=== PATIENT | male | born 1960 | race Caucasian/White ===

== ENCOUNTER 2016-07-02 23:30 | Emergency (ER) | payer MEDICARE, OTHER ==
[2016-07-02 23:44] VITALS: RESP 20
[2016-07-02] MEDS ORDERED: DIPH,PERTUS(ACELL)TETVAC-LF 0.5 ML VIAL IM ONE (23:54)
--- NOTE | 2016-07-03 00:52 | CT ---
EXAMINATION TYPE: CT brain mustapha wo con DATE OF EXAM: 07/03/2016 12:44 AM COMPARISON: 05/24/2014 HISTORY: fall CT DLP: 1594.70 mGycm Automated exposure control for dose reduction was used. TECHNIQUE: CT scan of the head and cervical spine are performed without contrast. FINDINGS: There is cerebral cortical atrophy. There is no mass effect or midline shift. There is no sign of intracranial hemorrhage. The calvarium is intact. There is a right frontal scalp hematoma. The cervical vertebra have normal alignment. There is degenerative disc space narrowing at C6-7 with spurring of the endplates. Posterior elements are intact. Facet joints are intact. Skull base is inta ct. There is a small posterior C5-6 cervical disc herniation. IMPRESSION: Cerebral atrophy. No acute intracranial abnormality. No change. Right frontal scalp hematoma. Spondylotic changes in the lower cervical spine. No fracture. No change.
--- NOTE | 2016-07-03 01:08 | ED ---
Fall HPI - General Chief Complaint: Fall Stated Complaint: fall, etoh Time Seen by Provider: 07/02/16 23:46 Source: patient, EMS Mode of arrival: EMS - History of Present Illness Initial Comments: This 56-year-old white male presents with a complaint of a fall. He apparently tripped and hit his head on the concrete. He states that he missed a step. He denies any loss of consciousness although his friend thinks he may have passed out. There is been no nausea or vomiting. He does present via EMS. He apparently was drinking heavily and cannot quantify how much she drank this evening. He did sustain a laceration right above his right eyebrow. He denies any other injuries although he does have some neck tenderness. No other complaints or modifying factors. - Related Data Previous Rx's Medication Instructions Recorded Calcium Carbonate [Tums] 500 mg PO QID 30 Days 04/20/16 Doxycycline [Vibramycin] 100 mg PO Q12HR #10 capsule 04/20/16 HYDROcodone/APAP 5-325MG [Blackburn 1 each PO Q6HR PRN #20 tab 04/20/16 5-325] Multivitamins, Thera [Multivitamin] 1 tab PO DAILY #30 tablet 04/20/16 Pregabalin [Lyrica] 75 mg PO BID #60 cap 04/20/16 Sennosides-Docusate Sodium 2 each PO HS PRN #20 tab 04/20/16 [Senokot-S] Thiamine [Vitamin B-1] 100 mg PO BID@1200,1700 #30 tab 04/20/16 Cephalexin [Keflex] 500 mg PO Q6HR #20 cap 07/03/16 Allergies Allergy/AdvReac Type Severity Reaction Status Date / Time No Known Allergies Allergy Verified 07/02/16 23:44 Review of Systems ROS Statement: Those systems with pertinent positive or pertinent negative responses have been documented in the HPI. ROS Other: All systems not noted in ROS Statement are negative. Past Medical History Past Medical History: Unable to Obtain Additional Past Medical History / Comment(s): neuropathy, arthritis History of Any Multi-Drug Resistant Organisms: None Reported Past Surgical History: No Surgical Hx Reported Past Anesthesia/Blood Transfusion Reactions: No Reported Reaction Past Psychological History: No Psychological Hx Reported Smoking Status: Current every day smoker Past Alcohol Use History: Abuse, Daily, Heavy Additional Past Alcohol Use History / Comment(s): drinks about 8-12 beers/day Past Drug Use History: None Reported - Past Family History Mother History Unknown: Yes Father History Unknown: Yes General Exam - General Exam Comments Initial Comments: GENERAL: The patient is well nourished and well hydrated. VITAL SIGNS: Heart rate, blood pressure, respiratory rate reviewed as recorded in nurse's notes. EYES: Pupils are round and reactive. Extraocular movements are intact. No conjunctival / lid redness or swelling. ENT: There is swelling and a 3 cm laceration above the right eyebrow. Airway is patent. Throat is clear. NECK: There is mild tenderness noted to the bilateral paracervical musculature. No swelling or evidence of injury. No subcutaneous emphysema. Trachea is midline. No thyroid mass. HEART: Regular rate and rhythm. Good peripheral pulses. LUNGS/CHEST: Breath sounds clear and equal bilaterally. No rales, rhonchi, or wheezes. No ecchymosis, subcutaneous emphysema, or tenderness. ABDOMEN: Abdomen soft without tenderness. No palpable masses or organomegaly. No peritoneal signs. No abdominal wall swelling or ecchymosis. EXTREMITIES: No extremity tenderness. Normal muscle tone and function. No thoracolumbar tenderness. NEUROLOGIC: Sensation is grossly intact. Cranial nerve exam reveals face is symmetrical, tongue is midline. Speech is mildly slurred consistent with alcohol intoxication.. SKIN: No abrasions or ecchymosis is noted. No induration or masses noted. PSYCHIATRIC: Alert and oriented. Appears intoxicated. Limitations: altered mental status Course Vital Signs 07/02/16 07/02/16 23:40 23:54 Temperature 97.6 F Pulse Rate 84 83 Respiratory 20 20 Rate Blood Pressure 145/87 O2 Sat by Pulse 96 97 Oximetry Medical Decision Making - Medical Decision Making The patient was seen and examined. A computed tomography scan of the brain was done and this shows a degree of atrophy with some right frontal scalp swelling. He receives a tetanus prophylaxis. The computed tomography scan of the neck does show some degenerative changes and possible slight herniated disc. The scalp laceration was anesthetized with some lidocaine, approximately 8 ml. the wound was thoroughly cleansed. A total of 6 simple interrupted 5-0 Vicryl sutures were placed. A total of 12 simple her up to 6-0 nylon sutures were placed. Excellent closure was obtained. No complications were encountered. He was watched for quite some time and did sober up significantly. It is felt as though he is stable for discharge. He has a friend who is going to watch him. He is counseled regarding head injuries and facial lacerations in detail and leaves in no distress. Disposition Clinical Impression: Fall, Head injury, Cervical strain, Alcohol intoxication, Facial laceration Disposition: HOME SELF-CARE Condition: Good Instructions: Fall Prevention for Older Adults (ED), Head Injury (ED), Cervical Strain (ED), Abuse of Alcohol (ED), Facial Laceration (ED) Additional Instructions: Please follow-up with your doctor in approximately 7 days to have the sutures removed. Prescriptions: Cephalexin [Keflex] 500 mg PO Q6HR #20 cap Referrals: None,Stated [Primary Care Provider] - 1-2 days Time of Disposition: 02:07
[2016-07-03 02:12] VITALS: PULSE 102
[2016-07-03 02:29] VITALS: BP 127/72; TEMP 97.8
== END 2016-07-03 02:30 | disposition home or self-care (01) ==
LOC: EC 23:30
DX: S01.81XA Laceration without foreign body of other part of head, initial encounter (principal); S09.90XA Unspecified injury of head, initial encounter; S16.1XXA Strain of muscle, fascia and tendon at neck level, initial encounter; Z23 Encounter for immunization; F10.129 Alcohol abuse with intoxication, unspecified; W10.9XXA Fall (on) (from) unspecified stairs and steps, initial encounter; Z79.899 Other long term (current) drug therapy; G62.9 Polyneuropathy, unspecified
CPT/HCPCS: 12013; 70450; 72125; 90471; 90715; 99284

== ENCOUNTER 2017-03-17 18:48 | Inpatient (IN) | payer MEDICARE, OTHER ==
[~2017-03-17 18:48] MED LIST: THIAMINE 100 MG TAB PO SCH
[2017-03-17] MEDS ORDERED: SODIUM CHLORIDE 0.9% 1,000 ML IV STA ×3 (19:13→20:57)
[2017-03-17] MEDS ORDERED: SODIUM CHLORIDE 0.9% 500 ML IV STA (19:13)
--- NOTE | 2017-03-17 19:40 | ED ---
General Adult HPI - General Chief complaint: Weakness Stated complaint: Weakness Time Seen by Provider: 03/17/17 18:50 Source: patient, RN notes reviewed, old records reviewed Mode of arrival: EMS - History of Present Illness Initial comments: This is a 57-year-old male to the ER for evaluation regarding weakness. Patient per EMS and bystanders had not moved from results are within 3 days. They found her lying in his feces, patient has known alcoholic and has not Out Of Bed in 2 Days Likely. Patient Himself Is Able to Answer Questions, Denies Any Specific Complaints, States He Does Not Feel Well. - Related Data Home Medications Medication Instructions Recorded Confirmed No Known Home Medications [No 03/17/17 03/17/17 Known Home Medications] Allergies Allergy/AdvReac Type Severity Reaction Status Date / Time No Known Allergies Allergy Verified 03/17/17 19:47 Review of Systems ROS Statement: Those systems with pertinent positive or pertinent negative responses have been documented in the HPI. ROS Other: All systems not noted in ROS Statement are negative. Past Medical History Past Medical History: Unable to Obtain Additional Past Medical History / Comment(s): neuropathy, arthritis History of Any Multi-Drug Resistant Organisms: None Reported Past Surgical History: No Surgical Hx Reported Past Anesthesia/Blood Transfusion Reactions: No Reported Reaction Past Psychological History: No Psychological Hx Reported Smoking Status: Current every day smoker Past Alcohol Use History: Abuse, Daily, Heavy Past Drug Use History: None Reported - Past Family History Mother History Unknown: Yes Father History Unknown: Yes General Exam Limitations: altered mental status General appearance: alert, in distress, cachectic Head exam: Present: atraumatic, normocephalic, normal inspection Eye exam: Present: normal appearance, PERRL, EOMI. Absent: scleral icterus, conjunctival injection, periorbital swelling ENT exam: Present: normal exam, mucous membranes moist Neck exam: Present: normal inspection. Absent: tenderness, meningismus, lymphadenopathy Respiratory exam: Present: normal lung sounds bilaterally. Absent: respiratory distress, wheezes, rales, rhonchi, stridor Cardiovascular Exam: Present: regular rate, normal rhythm, normal heart sounds. Absent: systolic murmur, diastolic murmur, rubs, gallop, clicks GI/Abdominal exam: Present: soft, normal bowel sounds. Absent: distended, tenderness, guarding, rebound, rigid Extremities exam: Present: normal inspection, full ROM, normal capillary refill. Absent: tenderness, pedal edema, joint swelling, calf tenderness Back exam: Present: normal inspection Neurological exam: Present: alert, oriented X3, CN II-XII intact Psychiatric exam: Present: normal affect, normal mood Skin exam: Present: warm, dry, intact, normal color. Absent: rash Course Vital Signs 03/17/17 03/17/17 03/17/17 19:04 19:24 19:59 Temperature 97.8 F Pulse Rate 110 H 107 H Respiratory 18 16 Rate Blood Pressure 88/61 85/60 O2 Sat by Pulse 94 L 100 Oximetry 03/17/17 20:53 Temperature Pulse Rate 106 H Respiratory 16 Rate Blood Pressure 91/68 O2 Sat by Pulse 100 Oximetry - Reevaluation(s) Reevaluation #1: 03/17/17 21:01 Patient has no clinical improvement EKG Findings - EKG Comments: EKG Findings:: EKG shows sinus tachycardia rate of 104, MO 166, QRS 100, QTc 526 Medical Decision Making - Medical Decision Making 57 I'll to the ER for evaluation, patient found lying in his own feces immobile. Patient's alcohol abuse. Severe hyponatremia, patient will be admitted for this resuscitation, pending alcohol withdrawal, and electrolyte replacement - Lab Data Result diagrams: 03/17/17 19:47 03/17/17 19:47 Lab Results 03/17/17 03/17/17 03/17/17 Range/Units 19:47 19:47 19:47 WBC (3.8-10.6) k/uL RBC (4.30-5.90) m/uL Hgb (13.0-17.5) gm/dL Hct (39.0-53.0) % MCV (80.0-100.0) fL MCH (25.0-35.0) pg MCHC (31.0-37.0) g/dL RDW (11.5-15.5) % Plt Count (150-450) k/uL Neutrophils % % Lymphocytes % % Monocytes % % Eosinophils % % Basophils % % Neutrophils # (1.3-7.7) k/uL Lymphocytes # (1.0-4.8) k/uL Monocytes # (0-1.0) k/uL Eosinophils # (0-0.7) k/uL Basophils # (0-0.2) k/uL PT (9.0-12.0) sec INR (<1.2) APTT (22.0-30.0) sec Sodium 118 L* (137-145) mmol/L Potassium 3.4 L (3.5-5.1) mmol/L Chloride 86 L (98-107) mmol/L Carbon Dioxide 16 L (22-30) mmol/L Anion Gap 16 mmol/L BUN 15 (9-20) mg/dL Creatinine 0.60 L (0.66-1.25) mg/dL Est GFR (MDRD) Af Amer >60 (>60 ml/min/1.73 sqM) Est GFR (MDRD) Non-Af >60 (>60 ml/min/1.73 sqM) Glucose 89 (74-99) mg/dL Plasma Lactic Acid Gianfranco 2.7 H* (0.7-2.0) mmol/L Calcium 8.4 (8.4-10.2) mg/dL Phosphorus 3.8 (2.5-4.5) mg/dL Magnesium 1.6 (1.6-2.3) mg/dL Total Bilirubin 1.6 H (0.2-1.3) mg/dL AST 42 (17-59) U/L ALT 36 (21-72) U/L Alkaline Phosphatase 135 H (38-126) U/L Ammonia <9 (<30) umol/L Total Creatine Kinase 20 L (55-170) U/L CK-MB (CK-2) <0.2 (0.0-2.4) ng/mL CK-MB (CK-2) Rel Index Troponin I <0.012 (0.000-0.034) ng/mL Total Protein 6.8 (6.3-8.2) g/dL Albumin 3.2 L (3.5-5.0) g/dL Serum Alcohol <10 mg/dL 03/17/17 03/17/17 Range/Units 19:47 19:47 WBC 3.2 L (3.8-10.6) k/uL RBC 3.70 L (4.30-5.90) m/uL Hgb 12.4 L (13.0-17.5) gm/dL Hct 36.1 L (39.0-53.0) % MCV 97.5 (80.0-100.0) fL MCH 33.5 (25.0-35.0) pg MCHC 34.4 (31.0-37.0) g/dL RDW 14.3 (11.5-15.5) % Plt Count 226 (150-450) k/uL Neutrophils % 57 % Lymphocytes % 35 % Monocytes % 5 % Eosinophils % 1 % Basophils % 0 % Neutrophils # 1.8 (1.3-7.7) k/uL Lymphocytes # 1.1 (1.0-4.8) k/uL Monocytes # 0.2 (0-1.0) k/uL Eosinophils # 0.0 (0-0.7) k/uL Basophils # 0.0 (0-0.2) k/uL PT 14.6 H (9.0-12.0) sec INR 1.5 H (<1.2) APTT 27.4 (22.0-30.0) sec Sodium (137-145) mmol/L Potassium (3.5-5.1) mmol/L Chloride (98-107) mmol/L Carbon Dioxide (22-30) mmol/L Anion Gap mmol/L BUN (9-20) mg/dL Creatinine (0.66-1.25) mg/dL Est GFR (MDRD) Af Amer (>60 ml/min/1.73 sqM) Est GFR (MDRD) Non-Af (>60 ml/min/1.73 sqM) Glucose (74-99) mg/dL Plasma Lactic Acid Gianfranco (0.7-2.0) mmol/L Calcium (8.4-10.2) mg/dL Phosphorus (2.5-4.5) mg/dL Magnesium (1.6-2.3) mg/dL Total Bilirubin (0.2-1.3) mg/dL AST (17-59) U/L ALT (21-72) U/L Alkaline Phosphatase (38-126) U/L Ammonia (<30) umol/L Total Creatine Kinase (55-170) U/L CK-MB (CK-2) (0.0-2.4) ng/mL CK-MB (CK-2) Rel Index Troponin I (0.000-0.034) ng/mL Total Protein (6.3-8.2) g/dL Albumin (3.5-5.0) g/dL Serum Alcohol mg/dL Disposition Clinical Impression: Alcohol intoxication, Hyponatremia, Dehydration, Weakness Disposition: ADMITTED IP TO THIS HOSP Condition: Serious Referrals: None,Stated [Primary Care Provider] - 1-2 days
[2017-03-17 19:57] LABS: Basophils % (A) 0 %; CH 33.5; CHCM 34.5; Eosinophils % (A) 1 %; HCT 36.1 % (39.0-53.0); HDW 2.45; HGB 12.4 gm/dL (13.0-17.5); Luc # (Auto) 0.09; Luc % (Auto) 3; Lymphocytes # (A) 1.1 k/uL (1.0-4.8); Lymphocytes % (A) 35 %; MCH 33.5 pg (25.0-35.0); MCHC 34.4 g/dL (31.0-37.0); MCV 97.5 fL (80.0-100.0); Mean Platelet Volume 7.4; Monocytes # (A) 0.2 k/uL (0-1.0); Monocytes % (A) 5 %; Neutrophils # (A) 1.8 k/uL (1.3-7.7); Neutrophils % (A) 57 %; RDW 14.3 % (11.5-15.5); WBC 3.2 k/uL (3.8-10.6)
[2017-03-17 20:06] LABS: Ammonia <9 umol/L (<30)
[2017-03-17 20:08] LABS: ALT 36 U/L (21-72); AST 42 U/L (17-59); Alcohol <10 mg/dL; Alkaline Phosphatase 135 U/L (38-126); Anion Gap 16 mmol/L; Blood Urea Nitrogen 15 mg/dL (9-20); Calcium 8.4 mg/dL (8.4-10.2); Carbon Dioxide 16 mmol/L (22-30); Chloride 86 mmol/L (98-107); Glucose 89 mg/dL (74-99); Magnesium 1.6 mg/dL (1.6-2.3); Non-African American GFR(MDRD) >60 (>60 ml/min/1.73 sqM); Phosphorus 3.8 mg/dL (2.5-4.5); Potassium 3.4 mmol/L (3.5-5.1); Total Bilirubin 1.6 mg/dL (0.2-1.3); Total Protein 6.8 g/dL (6.3-8.2)
[2017-03-17 20:16] LABS: INR 1.5 (<1.2); Partial Thromboplastin Time 27.4 sec (22.0-30.0); Prothrombin Time 14.6 sec (9.0-12.0)
[2017-03-17 20:17] LABS: Sodium 118 mmol/L (137-145)
[2017-03-17 20:24] LABS: Creatine Kinase 20 U/L (55-170)
[2017-03-17 20:36] LABS: Creatine Kinase MB <0.2 ng/mL (0.0-2.4); Troponin I <0.012 ng/mL (0.000-0.034)
[2017-03-17] MEDS ORDERED: THIAMINE 100 MG/ML 2 ML VIAL IM STA (20:57)
[2017-03-17] MEDS ORDERED: LORazepam 2 MG/ML INJ IV PRN ×3 (20:57)
[2017-03-17] MEDS: DEXTROSE 5%-0.45% NACL 1,000 ML IV SCH (21:48)
[2017-03-18 04:19] VITALS: BMI 15.9
[2017-03-18 11:10] LABS: Glucose,Whole Blood 138 mg/dL (75-99)
[2017-03-18] MEDS ORDERED: SODIUM CHLORIDE 0.9% 1,000 ML IV ONE (11:21)
--- NOTE | 2017-03-18 11:29 | P.HPIM ---
History of Present Illness patient is a 52-year-old male was brought in here by friends after he was found in feces sliding it in the morning motel room. Patient is extremely poor historian although I'm able to get some of the history patient apparently has been in the modal room knotting eating or drinking just watching TV he cannot explain why patient is alert and unable to tell me the date exactly he doses 2017, when asked about depression he says everyone is depressed he denied any suicidal ideations patient is found to be severely hyponatremic admitted to the hospital unfortunately he was started on D5 half-normal saline which is not appropriate which is being switched to normal saline and will also check the blood sugars.when questioned more patient says he is just not eating because he doesn't feel like eating patient denies any alcohol abuse but although it was reported in the ER by the friends that he has been drinking every single day, but his blood alcohol level was not elevated. Patient dies found to have lactic is doses due to severe dehydration I didn't see any source of infection anyways CVA blood cultures urine cultures and chest x-ray will be obtained and antibiotics will be discontinued. Patient is on alcohol withdrawal precautions and thiamine multivitamin supplementation will also monitor blood glucose area patient denied any dysuria denied any cough runny nose, fever patient says she has severe neuropathic pain used to use A, which was taken off after his discharge from subacute rehab. When verified patient was in fact discharged on Lyrica after his previous hospitalization in 2016area patient is hypotensive secondary to severe hypovolemia patient will be resuscitated with the bolus of normal saline Review of Systems all other systems were negative except for those mentioned in the HPI Past Medical History Past Medical History: Unable to Obtain Additional Past Medical History / Comment(s): neuropathy, arthritis History of Any Multi-Drug Resistant Organisms: None Reported Past Surgical History: No Surgical Hx Reported Past Anesthesia/Blood Transfusion Reactions: No Reported Reaction Past Psychological History: No Psychological Hx Reported Smoking Status: Current every day smoker Past Alcohol Use History: Abuse, Daily, Heavy Additional Past Alcohol Use History / Comment(s): drinks about 8-12 beers/day Past Drug Use History: None Reported - Past Family History Mother History Unknown: Yes Father History Unknown: Yes Medications and Allergies Home Medications Medication Instructions Recorded Confirmed Type No Known Home Medications [No 03/17/17 03/17/17 History Known Home Medications] Allergies Allergy/AdvReac Type Severity Reaction Status Date / Time No Known Allergies Allergy Verified 03/17/17 19:47 Physical Exam Vitals: Vital Signs Temp Pulse Pulse Resp BP BP BP 03/18/17 07:00 97.0 F L 90 20 74/45 03/17/17 23:01 97.0 F L 86 16 84/59 03/17/17 22:40 16 03/17/17 21:55 98.8 F 106 H 16 91/64 03/17/17 20:53 106 H 16 91/68 03/17/17 19:59 107 H 16 85/60 03/17/17 19:24 88/61 03/17/17 19:04 97.8 F 110 H 18 BP Pulse Ox 03/18/17 07:00 82/57 100 03/17/17 23:01 96 03/17/17 22:40 03/17/17 21:55 100 03/17/17 20:53 100 03/17/17 19:59 100 03/17/17 19:24 03/17/17 19:04 94 L Intake and Output 03/17/17 03/18/17 03/18/17 22:59 06:59 14:59 Intake Total 380 Balance 380 Intake: Intake, IV Titration 320 Amount Dextrose 5%-0.45% NaCl 1, 320 000 ml @ 80 mls/hr IV . [id number] [facility] Rx#:[id number] Oral 60 Other: Voiding Method Incontinent # Voids 2 Weight 56.245 kg 56.245 kg Patient Weight 03/19/17 06:59 Weight 56.245 kg PHYSICAL EXAMINATION: GENERAL: The patient is alert and oriented x3, not in any acute distress. Well developed, well nourished. HEENT: Pupils are round and equally reacting to light. EOMI. No scleral icterus. No conjunctival pallor. Normocephalic, atraumatic. No pharyngeal erythema. No thyromegaly. CARDIOVASCULAR: S1 and S2 present. No murmurs, rubs, or gallops. PULMONARY: Chest is clear to auscultation, no wheezing or crackles. ABDOMEN: Soft, nontender, nondistended, normoactive bowel sounds. No palpable organomegaly. MUSCULOSKELETAL: No joint swelling or deformity. EXTREMITIES: No cyanosis, clubbing, or pedal edema. NEUROLOGICAL: Gross neurological examination did not reveal any focal deficits. SKIN: No rashes. Results CBC & Chem 7: 03/17/17 19:47 03/17/17 19:47 Labs: Abnormal Lab Results - Last 24 Hours (Table) 03/17/17 03/17/17 03/17/17 Range/Units 19:47 19:47 19:47 WBC (3.8-10.6) k/uL RBC (4.30-5.90) m/uL Hgb (13.0-17.5) gm/dL Hct (39.0-53.0) % PT (9.0-12.0) sec INR (<1.2) Sodium 118 L* (137-145) mmol/L Potassium 3.4 L (3.5-5.1) mmol/L Chloride 86 L (98-107) mmol/L Carbon Dioxide 16 L (22-30) mmol/L Creatinine 0.60 L (0.66-1.25) mg/dL POC Glucose (mg/dL) (75-99) mg/dL Plasma Lactic Acid Gianfranco 2.7 H* (0.7-2.0) mmol/L Total Bilirubin 1.6 H (0.2-1.3) mg/dL Alkaline Phosphatase 135 H (38-126) U/L Total Creatine Kinase 20 L (55-170) U/L Albumin 3.2 L (3.5-5.0) g/dL 03/17/17 03/17/17 03/18/17 Range/Units 19:47 19:47 11:01 WBC 3.2 L (3.8-10.6) k/uL RBC 3.70 L (4.30-5.90) m/uL Hgb 12.4 L (13.0-17.5) gm/dL Hct 36.1 L (39.0-53.0) % PT 14.6 H (9.0-12.0) sec INR 1.5 H (<1.2) Sodium (137-145) mmol/L Potassium (3.5-5.1) mmol/L Chloride (98-107) mmol/L Carbon Dioxide (22-30) mmol/L Creatinine (0.66-1.25) mg/dL POC Glucose (mg/dL) 138 H (75-99) mg/dL Plasma Lactic Acid Gianfranco (0.7-2.0) mmol/L Total Bilirubin (0.2-1.3) mg/dL Alkaline Phosphatase (38-126) U/L Total Creatine Kinase (55-170) U/L Albumin (3.5-5.0) g/dL Thrombosis Risk Factor Assmnt - Choose All That Apply Any of the Below Risk Factors Present?: Yes Each Factor Represents 1 point: Age 41-60 years Other Risk Factors: No Other congenital or acquired thrombophilia - If yes, enter type in comment: No Thrombosis Risk Factor Assessment Total Risk Factor Score: 1 Thrombosis Risk Factor Assessment Level: Low Risk Assessment and Plan Plan: #1 severe hypokalemia, hypovolemic hyponatremia: She was started on normal saline will give a bolus of IV normal saline close monitoring of lites. #2 possibility of alcoholism and severe depression. #3 hypotension secondary to severe hypokalemia for which patient was started on IV fluids as mentioned above. #4 lactic acidosis due to severe intravascular volume depletion for which patient was started on IV fluids.the symptoms of sepsis patient will not be started on any antibiotics. #5severe neuropathic pain because of his chronic low back problems patient for which patient was started on Lyrica. #6 severe deconditioning due to above-mentioned reasons of not ambulating and lying on the bed for a long time, will get physical therapy evaluation patient will be started on Lyrica again. #7 possibility of alcohol dependence and withdrawal although there is no evidence of that patient will be monitored and will be on alcohol withdrawal precautions
[2017-03-18 12:44] LABS: CH 33.5; CHCM 33.4; HCT 31.5 % (39.0-53.0); HDW 2.55; HGB 10.4 gm/dL (13.0-17.5); MCH 33.2 pg (25.0-35.0); MCHC 32.9 g/dL (31.0-37.0); MCV 100.8 fL (80.0-100.0); Macrocytosis Slight; Mean Platelet Volume 7.9; RBC 3.13 m/uL (4.30-5.90); RDW 15.2 % (11.5-15.5); WBC 2.7 k/uL (3.8-10.6)
[2017-03-18 12:48] LABS: Anion Gap 9 mmol/L; Blood Urea Nitrogen 9 mg/dL (9-20); Calcium 7.4 mg/dL (8.4-10.2); Carbon Dioxide 19 mmol/L (22-30); Chloride 96 mmol/L (98-107); Glucose 77 mg/dL (74-99); Magnesium 1.6 mg/dL (1.6-2.3); Non-African American GFR(MDRD) >60 (>60 ml/min/1.73 sqM); Potassium 3.1 mmol/L (3.5-5.1); Sodium 124 mmol/L (137-145)
[2017-03-18] MEDS: DEXTROSE 5%-0.45% NACL 1,000 ML IV SCH (14:21)
[2017-03-18] MEDS: SODIUM CHLORIDE 0.9% 1,000 ML IV SCH (14:24)
[2017-03-18] MEDS: ENOXAPARIN 40 MG/0.4 ML SYRINGE SQ SCH (14:24)
[2017-03-18] MEDS: THIAMINE 100 MG TAB PO SCH ×2 (14:25→18:29)
[2017-03-18 16:40] LABS: Appearance,Urine Cloudy (Clear); Bacteria,Urine Moderate /hpf; Bilirubin,Urine Negative (Negative); Glucose,Urine (UA) Negative (Negative); Ketones,Urine Negative (Negative); Leukocyte Esterase,Urine Large (Negative); Nitrite,Urine Negative (Negative); PH, Urine 5.5 (5.0-8.0); Particle Count 4029; Protein,Urine Negative (Negative); RBC,Urine 23 /hpf (0-5); Specific Gravity,Urine 1.008 (1.001-1.035); Squamous Epithelial Cell,Urine <1 /hpf (0-4); UA Billing (MACRO vs. MICRO) MICRO; Urobilinogen,Urine >12.0 mg/dL (<2.0); WBC,Urine 67 /hpf (0-5)
[2017-03-19] MEDS: SODIUM CHLORIDE 0.9% 1,000 ML IV SCH ×2 (00:41→08:10)
[2017-03-19 08:04] LABS: Anion Gap 6 mmol/L; Blood Urea Nitrogen 5 mg/dL (9-20); Carbon Dioxide 17 mmol/L (22-30); Chloride 104 mmol/L (98-107); Glucose 78 mg/dL (74-99); Non-African American GFR(MDRD) >60 (>60 ml/min/1.73 sqM); Sodium 127 mmol/L (137-145)
[2017-03-19] MEDS: ENOXAPARIN 40 MG/0.4 ML SYRINGE SQ SCH (08:09)
[2017-03-19 08:11] LABS: Potassium 2.9 mmol/L (3.5-5.1)
[2017-03-19 08:22] LABS: CH 32.4; CHCM 32.1; HCT 26.6 % (39.0-53.0); HDW 2.61; MCHC 32.5 g/dL (31.0-37.0); MCV 101.6 fL (80.0-100.0); Macrocytosis Slight; Mean Platelet Volume 7.6; RBC 2.62 m/uL (4.30-5.90); RDW 14.6 % (11.5-15.5); WBC 2.3 k/uL (3.8-10.6)
[2017-03-19 08:29] LABS: HGB 8.6 gm/dL (13.0-17.5)
[2017-03-19] MEDS ORDERED: Potassium Replacement Protocol 1 EACH MISC MISCELLANE PRN (08:29)
[2017-03-19] MEDS ORDERED: Magnesium Replacement Protocol 1 EACH MISC MISCELLANE PRN (08:47)
[2017-03-19] MEDS: POTASSIUM CHLORIDE 10 MEQ, LIDOCAINE 2% INJ 10 MG in SODIUM CHLORIDE 0.9% 100 ML IV SCH ×3 (09:06→11:25)
[2017-03-19] MEDS: LACTATED RINGERS 1,000 ML IV SCH (11:25)
--- NOTE | 2017-03-19 11:39 | P.PN ---
Subjective -year-old man with severe depression not been eating for about few days at a motel room was admitted for hyponatremia patient's hyponatremia is improving because of hyperchloremic issues and normal lactic acid, patient will be switched to lactated Ringer's and stent. Patient had an episode of diarrhea without obtaining C. diff testing. Patient doesn't have any significant withdrawals. As patient was telling yesterday patient is probably not drinking every single day as documented in ER note Constitutional: Denied any fatigue denied any fever. Cardio vascular: denied any chest pain, palpitations Gastrointestinal denied any nausea vomiting Pulmonary: Denied any shortness of breath cough Neurologic denied any new focal deficits Objective - Vital Signs Vital signs: Vital Signs Temp 98.8 F 03/19/17 07:00 Pulse 89 03/19/17 09:59 Resp 16 03/19/17 07:00 BP 90/69 03/19/17 08:46 Pulse Ox 98 03/19/17 07:00 Intake & Output 03/18/17 03/19/17 03/19/17 18:59 06:59 18:59 Intake Total 400 590 Output Total 200 Balance 200 590 Weight 56.245 kg Intake: Oral 400 590 Output: Urine 200 Other: Voiding Method Incontinent Incontinent Urinal Diaper # Voids 4 1 # Bowel Movements 1 3 - Exam REVIEW OF SYSTEMS: CONSTITUTIONAL: No fever, no malaise, no fatigue. HEENT: No recent visual problems or hearing problems. Denied any sore throat. CARDIOVASCULAR: No chest pain, orthopnea, PND, no palpitations, no syncope. PULMONARY: No shortness of breath, no cough, no hemoptysis. GASTROINTESTINAL: No diarrhea, no nausea, no vomiting, no abdominal pain. Normoactive bowel sounds. NEUROLOGICAL: No headaches, no weakness, no numbness. HEMATOLOGICAL: Denies any bleeding or petechiae. GENITOURINARY: Denies any burning micturition, frequency, or urgency. MUSCULOSKELETAL/RHEUMATOLOGICAL: Denies any joint pain, swelling, or any muscle pain. ENDOCRINE: Denies any polyuria or polydipsia. The rest of the 14-point review of systems is negative. - Labs CBC & Chem 7: 03/19/17 07:15 03/19/17 07:15 Labs: Abnormal Lab Results - Last 24 Hours (Table) 03/18/17 03/18/17 03/18/17 Range/Units 12:16 12:16 16:25 WBC 2.7 L (3.8-10.6) k/uL RBC 3.13 L (4.30-5.90) m/uL Hgb 10.4 L (13.0-17.5) gm/dL Hct 31.5 L (39.0-53.0) % MCV 100.8 H (80.0-100.0) fL Sodium 124 L (137-145) mmol/L Potassium 3.1 L (3.5-5.1) mmol/L Chloride 96 L (98-107) mmol/L Carbon Dioxide 19 L (22-30) mmol/L BUN (9-20) mg/dL Creatinine 0.55 L (0.66-1.25) mg/dL Calcium 7.4 L (8.4-10.2) mg/dL Magnesium (1.6-2.3) mg/dL Urine Blood Large H (Negative) Ur Leukocyte Esterase Large H (Negative) Urine RBC 23 H (0-5) /hpf Urine WBC 67 H (0-5) /hpf Urine Bacteria Moderate H (None) /hpf 03/19/17 03/19/17 03/19/17 Range/Units 07:15 07:15 07:15 WBC 2.3 L (3.8-10.6) k/uL RBC 2.62 L (4.30-5.90) m/uL Hgb 8.6 L D (13.0-17.5) gm/dL Hct 26.6 L (39.0-53.0) % MCV 101.6 H (80.0-100.0) fL Sodium 127 L (137-145) mmol/L Potassium 2.9 L* (3.5-5.1) mmol/L Chloride (98-107) mmol/L Carbon Dioxide 17 L (22-30) mmol/L BUN 5 L (9-20) mg/dL Creatinine 0.49 L (0.66-1.25) mg/dL Calcium 7.0 L (8.4-10.2) mg/dL Magnesium 1.3 L (1.6-2.3) mg/dL Urine Blood (Negative) Ur Leukocyte Esterase (Negative) Urine RBC (0-5) /hpf Urine WBC (0-5) /hpf Urine Bacteria (None) /hpf Assessment and Plan Plan: #1 severe hypokalemia, hypovolemic hyponatremia: She was started on normal saline will give a bolus of IV normal saline close monitoring of lites. #2 possibility of alcoholism and severe depression. #3 hypotension secondary to severe hypokalemia which resolved with IV fluids #4 lactic acidosis due to severe intravascular volume depletion for which patient was started on IV fluids.the symptoms of sepsis patient will not be started on any antibiotics. #5severe neuropathic pain because of his chronic low back problems patient for which patient was started on Lyrica. #6 severe deconditioning due to above-mentioned reasons of not ambulating and lying on the bed for a long time, will get physical therapy evaluation patient will be started on Lyrica again. #7 possibility of alcohol dependence and withdrawal although there is no evidence of that patient will be monitored and will be on alcohol withdrawal precautions
[2017-03-19] MEDS: THIAMINE 100 MG TAB PO SCH ×2 (11:44→16:26)
[2017-03-19] MEDS: MAGNESIUM SULFATE-D5W PMX 1 GM in DEXTROSE/WATER 1 100ML.BAG IVPB SCH ×3 (13:38→16:25)
[2017-03-19] MEDS: ACETAMINOPHEN TAB 325 MG TAB PO PRN (16:25)
[2017-03-19] MEDS: PREGABALIN 50 MG CAP PO SCH ×2 (17:39→21:33)
[2017-03-19 18:20] LABS: Vitamin B12 >1000 pg/mL (239-931)
[2017-03-19 18:58] LABS: Potassium 3.3 mmol/L (3.5-5.1)
[2017-03-19] MEDS: POTASSIUM CHLORIDE 10 MEQ, LIDOCAINE 2% INJ 10 MG in SODIUM CHLORIDE 0.9% 100 ML IVPB SCH ×2 (20:29→21:34)
[2017-03-19] MEDS: MIRTAZAPINE 15 MG TAB PO SCH (21:34)
--- NOTE | 2017-03-19 22:49 | P.CN ---
Psychiatric Consult - . Consult date: 03/19/17 Consult:: VITAL SIGNS: Temp 101.1 F H 03/19/17 15:00 Pulse 102 H 03/19/17 15:00 Resp 16 03/19/17 15:00 BP 91/68 03/19/17 15:00 Pulse Ox 100 03/19/17 15:00 LABS: 03/19/17 03/19/17 03/19/17 07:15 07:15 07:15 WBC 2.3 L RBC 2.62 L Hgb 8.6 L D Hct 26.6 L MCV 101.6 H MCH 33.0 MCHC 32.5 RDW 14.6 Plt Count 173 Macrocytosis Slight Sodium 127 L Potassium 2.9 L* Chloride 104 Carbon Dioxide 17 L Anion Gap 6 BUN 5 L Creatinine 0.49 L Est GFR (MDRD) Af Amer >60 Est GFR (MDRD) Non-Af >60 Glucose 78 Calcium 7.0 L Magnesium 1.3 L C. difficile (EIA) Intrp HPI: Patient is 57 year old male who was brought to the hospital by EMS after friends called for help when patient was found covered in feces in his motel room. Patient is overall poor historian, but cooperative with interview. He reports that he has not been eating for the last three weeks and drinking alcohol every day. Patient denies any suicidal intent, he states that due to his chronic neuropathy he is unable to ambulate and as such has been unable to leave his motel to purchase or do more or less anything. Patient has no insight into the seriousness of his medical situation. After discussion how severe hypokalemia, hypovolemic hyponatremia patient seems more mindful. He agrees to be more cooperative with staff. Patient admits to chronic feelings of depression, but due to his sarcastic, cynical nature it is difficult to screen patient for a past major depressive episode or past manic episode. He will admit only to being depressed and having a decreased appetite. At this time, patient denies SI/HI/AVH. PSYCHIATRIC HISTORY: denies any past history of psychiatric hospitalization, treatment with psychotropic medication, or psychotherapy PMH: neuropathy, OA HOME MEDICATIONS: none ALLERGIES: NKDA SURGICAL HISTORY: none CHEMICAL DEPENDENCY HISTORY: alcoholism, denies other drug use FAMILY HISTORY: refuses to discuss, states growing up was "a nightmare" SOCIAL HISTORY: occupational: unemployed environmental: previously living in a motel, lives alone, unable to ambulate due to neuropathy and thus unable to leave to buy food, attend doctors appointments, etc. : no bahai: no preference access to firearms: denies sexual orientation: heterosexual safety at home: "not anymore, obviously" STRENGTHS/WEAKNESSES: patient states he is a "survivor" / housing, financial, access to care, insight MENTAL STATUS EXAM: Appearance: disheveled, ragged, malnourished Behavior: no psychomotor agitation+++, abnormal movements?, poor to fair eye contact Attitude: cooperative Speech: normal rate, rhythm, fluency, volume; articulation is impaired and prosody is choppy; primary language: Thai Mood: "irritated: Affect: labile, reactive, congruent with mood Thought processes: linear Thought content: patient does not appear to be responding to internal stimuli; patient denies auditory and visual hallucinations, no delusions appreciated Insight: poor Judgment: poor Cognitive: oriented to all 3 spheres, below average to average intelligence Assessment and Plan Plan: Start Remeron 7.5-mg PO QHS with plan to titrate up to 15-mg PO QHS pending tolerability for depression, insomnia, and decreased appetite Start Lyrica 25-mg PO TID for neuropathic pain and anxiety with plan to titrate up pending tolerability Labs ordered for workup on secondary contributing factors to depression and neuropathy: o Vitamin B6 o Vitamin B12 o Vitamin B1 o Prealbumin o TSH w/ Reflex to FT4 Patient responds fairly well to constructive criticism, hes sarcastic and cynical, but will comply with prompting At this time, patient does not meet criteria for admission into inpatient mental health Psychiatry will follow Time with Patient: Greater than 30
[2017-03-20] MEDS: POTASSIUM CHLORIDE ER 20 MEQ TAB.ER PO SCH ×2 (01:15→03:37)
[2017-03-20] MEDS: LACTATED RINGERS 1,000 ML IV SCH ×3 (03:40→16:15)
[2017-03-20 08:34] LABS: Anion Gap 8 mmol/L; Blood Urea Nitrogen 3 mg/dL (9-20); Calcium 7.3 mg/dL (8.4-10.2); Carbon Dioxide 17 mmol/L (22-30); Chloride 104 mmol/L (98-107); Glucose 73 mg/dL (74-99); Magnesium 1.4 mg/dL (1.6-2.3); Non-African American GFR(MDRD) >60 (>60 ml/min/1.73 sqM); Potassium 3.7 mmol/L (3.5-5.1); Sodium 129 mmol/L (137-145)
[2017-03-20 08:43] LABS: CH 33.5; CHCM 33.3; HCT 27.6 % (39.0-53.0); HDW 2.61; HGB 9.1 gm/dL (13.0-17.5); MCH 33.5 pg (25.0-35.0); MCHC 33.1 g/dL (31.0-37.0); MCV 101.2 fL (80.0-100.0); Macrocytosis Slight; Mean Platelet Volume 7.8; RBC 2.72 m/uL (4.30-5.90); RDW 15.3 % (11.5-15.5)
[2017-03-20 08:46] LABS: WBC 1.8 k/uL (3.8-10.6)
[2017-03-20] MEDS: ENOXAPARIN 40 MG/0.4 ML SYRINGE SQ SCH (09:01)
[2017-03-20] MEDS: ACETAMINOPHEN TAB 325 MG TAB PO PRN (09:01)
[2017-03-20] MEDS: THIAMINE 100 MG TAB PO SCH ×2 (11:22→16:15)
[2017-03-20] MEDS: PREGABALIN 25 MG CAP PO SCH ×3 (11:22→22:40)
[2017-03-20] MEDS ORDERED: Magnesium Replacement Protocol 1 EACH MISC MISCELLANE PRN (12:57)
[2017-03-20] MEDS: MAGNESIUM SULFATE-D5W PMX 1 GM in DEXTROSE/WATER 1 100ML.BAG IVPB SCH ×3 (13:16→16:12)
[2017-03-20] MEDS: MIRTAZAPINE 15 MG TAB PO SCH (22:40)
--- NOTE | 2017-03-21 01:01 | P.PN ---
Subjective Progress Note Date: 03/20/17 Principal diagnosis: Hyponatremia T7-year-old man with severe depression not been eating for about few days at a motel room was admitted for hyponatremia patient's hyponatremia is improving because of hyperchloremic issues and normal lactic acid, patient was switched to lactated Ringer's and stent. Patient doesn't have any significant withdrawals. Constitutional: Denied any fatigue denied any fever. Cardio vascular: denied any chest pain, palpitations Gastrointestinal denied any nausea vomiting Pulmonary: Denied any shortness of breath cough Neurologic denied any new focal deficits All other 14 point review of systems negative Current medications reviewed Objective - Vital Signs Vital signs: Vital Signs Temp 97.5 F L 03/20/17 15:00 Pulse 108 H 03/20/17 16:00 Resp 17 03/20/17 16:00 BP 105/55 03/20/17 18:04 Pulse Ox 94 L 03/20/17 15:00 Intake & Output 03/20/17 03/20/17 03/21/17 06:59 18:59 06:59 Intake Total 1600 1150 Output Total 200 Balance 1400 1150 Weight 56.245 kg 56.245 kg Intake: Intake, IV Titration 1600 1150 Amount Lactated Ringers 1,000 ml 1400 800 @ 100 mls/hr IV .Q10H [facility] Rx#:[id number] Magnesium Sulfate-D5w Pmx 300 1 gm In Dextrose/Water 1 100ml.bag @ 100 mls/hr IVPB Q1H [facility] Rx#: [id number] Potassium Chloride 10 meq 200 Lidocaine 2% Inj 10 mg In Sodium Chloride 0.9% 100 ml @ 100 mls/hr IVPB Q1HR [facility] Rx#:[id number] cefTRIAXone 1,000 mg In 50 Sodium Chloride 0.9% 50 ml @ 100 mls/hr IVPB Q24HR [facility] Rx#:[id number] Output: Urine 200 Other: Voiding Method Urinal Urinal Incontinent Incontinent # Voids 3 - Exam PHYSICAL EXAMINATION: Patient is lying in the bed comfortably, no acute distress, awake alert and oriented.. HEENT: Normocephalic. Neck is supple. Pupils reactive. Nostrils clear. Oral cavity is moist. Ears reveal no drainage. Neck reveals no JVD, carotid bruits, or thyromegaly. CHEST EXAMINATION: Trachea is central. Symmetrical expansion. Lung atkins clear to auscultation and percussion. CARDIAC: Normal S1, S2 with no gallops. No murmurs ABDOMEN: Soft. Bowel sounds normal. No organomegaly. No abdominal bruits. Extremities: reveal no edema. No clubbing or cyanosis Neurologically awake, alert, oriented x3 with well-coordinated movements. No focal deficits noted Skin: No rash or skin lesions. Psychiatric: Operative. Nonsuicidal Musculoskeletal: No joint swelling or deformity. Normal range of motion. - Labs CBC & Chem 7: 03/20/17 07:45 03/20/17 07:45 Labs: Abnormal Lab Results - Last 24 Hours (Table) 03/19/17 03/20/17 03/20/17 Range/Units 23:50 07:45 07:45 WBC 1.8 L* (3.8-10.6) k/uL RBC 2.72 L (4.30-5.90) m/uL Hgb 9.1 L (13.0-17.5) gm/dL Hct 27.6 L (39.0-53.0) % MCV 101.2 H (80.0-100.0) fL Sodium 129 L (137-145) mmol/L Potassium 3.4 L (3.5-5.1) mmol/L Carbon Dioxide 17 L (22-30) mmol/L BUN 3 L (9-20) mg/dL Creatinine 0.44 L (0.66-1.25) mg/dL Glucose 73 L (74-99) mg/dL Calcium 7.3 L (8.4-10.2) mg/dL Magnesium 1.4 L (1.6-2.3) mg/dL Microbiology - Last 24 Hours (Table) 03/19/17 16:52 Blood Culture - Preliminary Blood No Growth after 24 hours 03/19/17 16:20 Blood Culture - Preliminary Blood No Growth after 24 hours 03/19/17 23:10 Urine Culture - Preliminary Urine,Voided Assessment and Plan Plan: #1 severe hypokalemia, hypovolemic hyponatremia: Improving #2 possibility of alcoholism and severe depression. #3 hypotension secondary to severe hypokalemia which resolved with IV fluids #4 lactic acidosis due to severe intravascular volume depletion for which patient was started on IV fluids.the symptoms of sepsis patient will not be started on any antibiotics. #5severe neuropathic pain because of his chronic low back problems patient for which patient was started on Lyrica. #6 severe deconditioning due to above-mentioned reasons of not ambulating and lying on the bed for a long time, will get physical therapy evaluation patient will be started on Lyrica again. #7 possibility of alcohol dependence and withdrawal although there is no evidence of that patient will be monitored and will be on alcohol withdrawal precautions Time with Patient: Greater than 30
[2017-03-21] MEDS: LACTATED RINGERS 1,000 ML IV SCH ×2 (03:21→15:08)
[2017-03-21 07:33] LABS: Aty Lym Flag Marked; CH 33.6; CHCM 31.9; HCT 29.4 % (39.0-53.0); HDW 2.56; HGB 9.3 gm/dL (13.0-17.5); MCH 33.4 pg (25.0-35.0); MCHC 31.5 g/dL (31.0-37.0); Macrocytosis Moderate; Mean Platelet Volume 7.6; RBC 2.77 m/uL (4.30-5.90); RDW 15.6 % (11.5-15.5); WBC 2.2 k/uL (3.8-10.6)
[2017-03-21 08:04] LABS: Anion Gap 7 mmol/L; Blood Urea Nitrogen 4 mg/dL (9-20); Calcium 7.4 mg/dL (8.4-10.2); Carbon Dioxide 18 mmol/L (22-30); Chloride 102 mmol/L (98-107); Glucose 68 mg/dL (74-99); Magnesium 1.4 mg/dL (1.6-2.3); Non-African American GFR(MDRD) >60 (>60 ml/min/1.73 sqM); Potassium 3.4 mmol/L (3.5-5.1); Sodium 127 mmol/L (137-145)
[2017-03-21 08:17] LABS: Add Differential Manual Differential
[2017-03-21 08:24] LABS: Band Neutrophils % 1 %; Manual Review Performed; Nucleated Red Blood Cells 0 /100 WBC (0-0); Total Cells Counted 100
[2017-03-21] MEDS ORDERED: Magnesium Replacement Protocol 1 EACH MISC MISCELLANE PRN (08:42)
[2017-03-21] MEDS ORDERED: Potassium Replacement Protocol 1 EACH MISC MISCELLANE PRN (08:43)
[2017-03-21] MEDS: ENOXAPARIN 40 MG/0.4 ML SYRINGE SQ SCH (08:52)
[2017-03-21] MEDS: THIAMINE 100 MG TAB PO SCH ×2 (08:52→16:59)
[2017-03-21] MEDS: POTASSIUM CHLORIDE ER 20 MEQ TAB.ER PO SCH ×4 (09:32→18:11)
[2017-03-21] MEDS: MAGNESIUM SULFATE-D5W PMX 1 GM in DEXTROSE/WATER 1 100ML.BAG IVPB SCH ×3 (09:32→12:32)
[2017-03-21] MEDS: PREGABALIN 25 MG CAP PO SCH ×3 (12:32→21:07)
--- NOTE | 2017-03-21 15:26 | CDI ---
In responding to this query, please exercise your independent professional judgment. The [facility] Coding Staff and Clinical Documentation Specialists appreciate your assistance in clarifying documentation, maintaining compliance with coding guidelines, accurately documenting patients condition and capturing severity of illness. The fact that a question is asked does not imply that any particular answer is desired or expected. Communication forms are a method of clarifying documentation and are not made part of the Legal Health Record. Thank you in advance for your clarification. Last Revision, April 2015 Ashlee Leal [address] [place] [address] Documentation Clarification Form Date: 03/21/2017 3:08:00 PM From: Caron Blanco, CCS, CCDS Admit Date: 03/17/2017 8:57:00 PM Patient Name: Linden Pugh Visit Number: [id number] Discharge Date: Dr. Katarzyna Lopez: 57 yo male, admitted with weakness, known alcoholic, not eating or drinking lately. Diagnosed with Hyponatremia, Dehydration & Alcohol intoxication. Per Psychiatric Consultation: malnourished. History/Risk Factors: Alcohol abuse, Neuropathy, Arthritis, Depression, Smoker, homeless at times. Clinical Indicators: Labs: Hgb 12.4*, Na 118, Lactic Acid 2.7^, Albumin 3.2* Current BMI: 15.9 Insufficient energy intake: Poor appetite <1 week, emaciated, orbital region hollow, cachetic, temporal region depressed, underweight, weight loss. Per patient, he does not eat, drinks alcohol instead. Treatment: Bl Cx, IV fl 100, IV fl bolus x2, IV Ativan x3, IV Rocephin, O2 2Lnc , monitored for nutritional supplement. Dietary Consult, Psych Consult, Social Work consult. In your professional opinion, can you please clarify if these findings signify one of the following conditions? Mild Protein Malnutrition Mild Protein-Calorie Malnutrition Moderate Protein Malnutrition Moderate Protein-Calorie Malnutrition Severe Protein Malnutrition Severe Protein-Calorie Malnutrition Other condition, please specify Unable to determine Please document in your progress notes and discharge summary in order to capture severity of illness and risk of mortality. Include clinical findings that support your diagnosis. FYI: Press F11 to launch patient chart. PABLO
[2017-03-21] MEDS: SODIUM CHLORIDE 0.9% 1,000 ML IV SCH (16:59)
[2017-03-21] MEDS: MIRTAZAPINE 15 MG TAB PO SCH (21:07)
[2017-03-21] MEDS ORDERED: POTASSIUM CHLORIDE ER 20 MEQ TAB.ER PO STA (22:18)
--- NOTE | 2017-03-22 00:35 | P.PN ---
Progress Note - Text Progress Note Date: 03/21/17 Interval History: Patient interviewed at bedside, patient is in a cantankerous, sarcastic mood today but otherwise unchanged from previous exam. Patient;s dinner plate is noted to be relatively untouched. Patient continues to state that he feels he could have continued on his own outside the hospital and had to be reminded that he was brought to the hospital on the verge on and no , such was and is not a viable option. Patient eventually conceded this. He continues to be cooperative with staff and is taking his medications. At this time, patient denies SI/HI/AVH. Mental Status Exam: Appearance: tired, fatigued, hygiene is intact, appears older than chronological age Behavior: psychomotor agitation++, abnormal movements,+++ fair eye contact Attitude: cooperative Speech: normal rate, rhythm, fluency, articulation, volume, and prosody; primary language: Estonian Mood: cantankerous Affect: congruent, reactive Thought processes: linear Thought content: patient does not appear to be responding to internal stimuli; patient denies auditory and visual hallucinations, no delusions appreciated Insight: fair Judgment: poor Cognitive: oriented to all 3 spheres, average intelligence Plan: Increase Remeron to 15-mg PO QHS Increase Lyrica to 75-mg PO TID Consider the addition of Periactin 2-mg AC meals if appetite remains poor
--- NOTE | 2017-03-22 01:01 | P.PN ---
Subjective Progress Note Date: 03/21/17 Principal diagnosis: Hyponatremia 57-year-old man with severe depression not been eating for about few days at a motel room was admitted for hyponatremia patient's hyponatremia is improving because of hyperchloremic issues and normal lactic acid, patient was switched to lactated Ringer's and stent. Patient doesn't have any significant withdrawals. On 03/21/2017 Patient is awake and oriented. Continues to cooperative with staff. Denied any nausea vomiting. Tolerating oral diet slowly. Sodium level slightly came down today and IV fluids will be changed back to normal saline. No fever no chills. No acute overnight issues Constitutional: Denied any fatigue denied any fever. Cardio vascular: denied any chest pain, palpitations Gastrointestinal denied any nausea vomiting Pulmonary: Denied any shortness of breath cough Neurologic denied any new focal deficits All other 14 point review of systems negative Current medications reviewed Objective - Vital Signs Vital signs: Vital Signs Temp 98.8 F 03/21/17 15:00 Pulse 98 03/21/17 15:00 Resp 16 03/21/17 15:00 BP 87/63 03/21/17 15:00 Pulse Ox 100 03/21/17 15:00 Intake & Output 03/21/17 03/21/17 03/22/17 06:59 18:59 06:59 Intake Total 1150 Output Total 750 Balance 400 Intake: Intake, IV Titration 1150 Amount Lactated Ringers 1,000 ml 800 @ 100 mls/hr IV .Q10H [facility] Rx#:[id number] Magnesium Sulfate-D5w Pmx 300 1 gm In Dextrose/Water 1 100ml.bag @ 100 mls/hr IVPB Q1H [facility] Rx#: [id number] cefTRIAXone 1,000 mg In 50 Sodium Chloride 0.9% 50 ml @ 100 mls/hr IVPB Q24HR [facility] Rx#:[id number] Output: Urine 750 Other: Voiding Method Urinal Urinal Incontinent # Voids 3 # Bowel Movements 1 - Exam PHYSICAL EXAMINATION: Patient is lying in the bed comfortably, no acute distress, awake alert and oriented.. HEENT: Normocephalic. Neck is supple. Pupils reactive. Nostrils clear. Oral cavity is moist. Ears reveal no drainage. Neck reveals no JVD, carotid bruits, or thyromegaly. CHEST EXAMINATION: Trachea is central. Symmetrical expansion. Lung atkins clear to auscultation and percussion. CARDIAC: Normal S1, S2 with no gallops. No murmurs ABDOMEN: Soft. Bowel sounds normal. No organomegaly. No abdominal bruits. Extremities: reveal no edema. No clubbing or cyanosis Neurologically awake, alert, oriented x3 with well-coordinated movements. No focal deficits noted Skin: No rash or skin lesions. Psychiatric: Operative. Nonsuicidal Musculoskeletal: No joint swelling or deformity. Normal range of motion. - Labs CBC & Chem 7: 03/21/17 07:17 03/21/17 20:21 Labs: Abnormal Lab Results - Last 24 Hours (Table) 03/19/17 03/21/17 03/21/17 Range/Units 16:49 07: 07:17 WBC 2.2 L (3.8-10.6) k/uL RBC 2.77 L (4.30-5.90) m/uL Hgb 9.3 L (13.0-17.5) gm/dL Hct 29.4 L (39.0-53.0) % MCV 106.0 H (80.0-100.0) fL RDW 15.6 H (11.5-15.5) % Neutrophils # (Manual) 0.90 L (1.3-7.7) k/uL Sodium 127 L (137-145) mmol/L Potassium 3.4 L (3.5-5.1) mmol/L Carbon Dioxide 18 L (22-30) mmol/L BUN 4 L (9-20) mg/dL Creatinine 0.45 L (0.66-1.25) mg/dL Glucose 68 L (74-99) mg/dL Calcium 7.4 L (8.4-10.2) mg/dL Magnesium 1.4 L (1.6-2.3) mg/dL Vitamin B6 2 L (5-50) ug/L 03/21/17 Range/Units 13:40 WBC (3.8-10.6) k/uL RBC (4.30-5.90) m/uL Hgb (13.0-17.5) gm/dL Hct (39.0-53.0) % MCV (80.0-100.0) fL RDW (11.5-15.5) % Neutrophils # (Manual) (1.3-7.7) k/uL Sodium (137-145) mmol/L Potassium 3.2 L (3.5-5.1) mmol/L Carbon Dioxide (22-30) mmol/L BUN (9-20) mg/dL Creatinine (0.66-1.25) mg/dL Glucose (74-99) mg/dL Calcium (8.4-10.2) mg/dL Magnesium (1.6-2.3) mg/dL Vitamin B6 (5-50) ug/L Microbiology - Last 24 Hours (Table) 03/19/17 16:52 Blood Culture - Preliminary Blood No Growth after 48 hours 03/19/17 16:20 Blood Culture - Preliminary Blood No Growth after 48 hours 03/19/17 23:10 Urine Culture - Final Urine,Voided Assessment and Plan Plan: #1 severe hypokalemia, hypovolemic hyponatremia: Improving #2 possibility of alcoholism and severe depression. #3 hypotension secondary to severe hypokalemia which resolved with IV fluids #4 lactic acidosis due to severe intravascular volume depletion for which patient was started on IV fluids.the symptoms of sepsis patient will not be started on any antibiotics. #5severe neuropathic pain because of his chronic low back problems patient for which patient was started on Lyrica. #6 severe deconditioning due to above-mentioned reasons of not ambulating and lying on the bed for a long time, will get physical therapy evaluation patient will be started on Lyrica again. #7 possibility of alcohol dependence and withdrawal although there is no evidence of that patient will be monitored and will be on alcohol withdrawal precautions #8 acute urinary tract infection. On ceftriaxone Plan: Patient will be continued on IV hydration. IV fluids will be changed to normal saline and will monitor sodium level. Continue with antibiotics. Urine culture is negative. Patient will be continued on Remeron and Lyrica as per psychiatric recommendations. Continue with the PT OT and further recommendations based on the clinical course.
[2017-03-22] MEDS: SODIUM CHLORIDE 0.9% 1,000 ML IV SCH ×3 (04:17→21:48)
[2017-03-22] MEDS: ENOXAPARIN 40 MG/0.4 ML SYRINGE SQ SCH (07:28)
[2017-03-22] MEDS: PREGABALIN 75 MG CAP PO SCH ×3 (07:28→21:42)
[2017-03-22 08:25] LABS: Anion Gap 8 mmol/L; Blood Urea Nitrogen 7 mg/dL (9-20); Calcium 7.2 mg/dL (8.4-10.2); Carbon Dioxide 17 mmol/L (22-30); Chloride 106 mmol/L (98-107); Glucose 75 mg/dL (74-99); Magnesium 1.2 mg/dL (1.6-2.3); Non-African American GFR(MDRD) >60 (>60 ml/min/1.73 sqM); Potassium 3.9 mmol/L (3.5-5.1); Sodium 131 mmol/L (137-145)
[2017-03-22 08:55] LABS: Aty Lym Flag Slight; Basophils % (A) 1 %; CH 33.5; CHCM 32.5; Eosinophils % (A) 2 %; HCT 27.3 % (39.0-53.0); HDW 2.53; HGB 8.7 gm/dL (13.0-17.5); Luc # (Auto) 0.09; Luc % (Auto) 5; Lymphocytes # (A) 1.1 k/uL (1.0-4.8); Lymphocytes % (A) 54 %; MCH 33.2 pg (25.0-35.0); MCV 103.6 fL (80.0-100.0); Macrocytosis Slight; Mean Platelet Volume 7.7; Monocytes # (A) 0.2 k/uL (0-1.0); Monocytes % (A) 8 %; Neutrophils # (A) 0.6 k/uL (1.3-7.7); Neutrophils % (A) 30 %; RBC 2.63 m/uL (4.30-5.90); RDW 15.8 % (11.5-15.5); WBC (Perox) 1.32
[2017-03-22 09:54] LABS: Manual Review Performed
[2017-03-22] MEDS: THIAMINE 100 MG TAB PO SCH ×2 (12:54→16:36)
[2017-03-22] MEDS: MIRTAZAPINE 15 MG TAB PO SCH (21:43)
--- NOTE | 2017-03-23 00:46 | P.PN ---
Subjective Progress Note Date: 03/22/17 Principal diagnosis: Hyponatremia 57-year-old man with severe depression not been eating for about few days at a motel room was admitted for hyponatremia patient's hyponatremia is improving because of hyperchloremic issues and normal lactic acid, patient was switched to lactated Ringer's and stent. Patient doesn't have any significant withdrawals. On 03/21/2017 Patient is awake and oriented. Continues to cooperative with staff. Denied any nausea vomiting. Tolerating oral diet slowly. Sodium level slightly came down today and IV fluids will be changed back to normal saline. No fever no chills. No acute overnight issues 03/22/2017 Patient is awake and oriented. Still very lethargic and some confusion present , sodium level improved to 131. Still neutropenic at 2.0. No fever no chills no acute overnight issues. Patient does require to be transferred to rehab Constitutional: Denied any fatigue denied any fever. Cardio vascular: denied any chest pain, palpitations Gastrointestinal denied any nausea vomiting Pulmonary: Denied any shortness of breath cough Neurologic denied any new focal deficits All other 14 point review of systems negative Current medications reviewed Objective - Vital Signs Vital signs: Vital Signs Temp 98.7 F 03/22/17 15:00 Pulse 77 03/22/17 16:00 Resp 18 03/22/17 16:00 BP 98/60 03/22/17 15:00 Pulse Ox 100 03/22/17 15:00 Intake & Output 03/22/17 03/22/17 03/23/17 06:59 18:59 06:59 Intake Total 700 Output Total 450 Balance 250 Weight 56.245 kg Intake: Intake, IV Titration 700 Amount Sodium Chloride 0.9% 1, 700 000 ml @ 100 mls/hr IV . Q10H [facility] Rx#:[id number] Output: Urine 450 Other: Voiding Method Urinal Urinal # Voids 1 1 # Bowel Movements 1 1 - Exam PHYSICAL EXAMINATION: Patient is lying in the bed comfortably, no acute distress, awake alert and oriented.. HEENT: Normocephalic. Neck is supple. Pupils reactive. Nostrils clear. Oral cavity is moist. Ears reveal no drainage. Neck reveals no JVD, carotid bruits, or thyromegaly. CHEST EXAMINATION: Trachea is central. Symmetrical expansion. Lung atkins clear to auscultation and percussion. CARDIAC: Normal S1, S2 with no gallops. No murmurs ABDOMEN: Soft. Bowel sounds normal. No organomegaly. No abdominal bruits. Extremities: reveal no edema. No clubbing or cyanosis Neurologically awake, alert, oriented x3 with well-coordinated movements. No focal deficits noted Skin: No rash or skin lesions. Psychiatric: Operative. Nonsuicidal Musculoskeletal: No joint swelling or deformity. Normal range of motion. - Labs CBC & Chem 7: 03/22/17 07:34 03/22/17 07:34 Labs: Abnormal Lab Results - Last 24 Hours (Table) 03/22/17 03/22/17 Range/Units 07:34 07:34 WBC 2.0 L* (3.8-10.6) k/uL RBC 2.63 L (4.30-5.90) m/uL Hgb 8.7 L (13.0-17.5) gm/dL Hct 27.3 L (39.0-53.0) % MCV 103.6 H (80.0-100.0) fL RDW 15.8 H (11.5-15.5) % Neutrophils # 0.6 L (1.3-7.7) k/uL Sodium 131 L (137-145) mmol/L Carbon Dioxide 17 L (22-30) mmol/L BUN 7 L (9-20) mg/dL Creatinine 0.47 L (0.66-1.25) mg/dL Calcium 7.2 L (8.4-10.2) mg/dL Magnesium 1.2 L (1.6-2.3) mg/dL Microbiology - Last 24 Hours (Table) 03/19/17 16:52 Blood Culture - Preliminary Blood No Growth after 72 hours 03/19/17 16:20 Blood Culture - Preliminary Blood No Growth after 72 hours Assessment and Plan Plan: #1 severe hypokalemia, hypovolemic hyponatremia: Improving #2 possibility of alcoholism and severe depression. #3 hypotension secondary to severe hypokalemia which resolved with IV fluids #4 lactic acidosis due to severe intravascular volume depletion for which patient was started on IV fluids.the symptoms of sepsis patient will not be started on any antibiotics. #5severe neuropathic pain because of his chronic low back problems patient for which patient was started on Lyrica. #6 severe deconditioning due to above-mentioned reasons of not ambulating and lying on the bed for a long time, will get physical therapy evaluation patient will be started on Lyrica again. #7 possibility of alcohol dependence and withdrawal although there is no evidence of that patient will be monitored and will be on alcohol withdrawal precautions #8 acute urinary tract infection. On ceftriaxone Plan: Patient will be continued on IV hydration in the form of normal saline . Continued with antibiotics. Urine culture is negative. Patient will be continued on Remeron and Lyrica as per psychiatric recommendations. Continue with the PT OT and further recommendations based on the clinical course. Possible transfer to rehab
--- NOTE | 2017-03-23 03:32 | P.PN ---
Progress Note - Text Progress Note Date: 03/22/17 Interval History: Patient interviewed at bedside, patient is in a cantankerous, sarcasti. Appetite remains poor, patient states he just does not have the desire to eat. At this time, patient denies SI/HI/AVH. Mental Status Exam: Appearance: tired, fatigued, hygiene is intact, appears older than chronological age Behavior: psychomotor agitation++, abnormal movements,+++ fair eye contact Attitude: cooperative Speech: normal rate, rhythm, fluency, articulation, volume, and prosody; primary language: [place] Mood: cantankerous Affect: congruent, reactive Thought processes: linear Thought content: patient does not appear to be responding to internal stimuli; patient denies auditory and visual hallucinations, no delusions appreciated Insight: fair Judgment: poor Cognitive: oriented to all 3 spheres, average intelligence Plan: Continue Remeron to 15-mg PO QHS Continue Lyrica to 75-mg PO TID Start Periactin AC TID for decreased appetite
[2017-03-23 07:47] LABS: Aty Lym Flag Slight; CH 32.6; CHCM 32.4; HCT 26.5 % (39.0-53.0); HDW 2.63; HGB 8.4 gm/dL (13.0-17.5); MCH 32.2 pg (25.0-35.0); MCHC 31.8 g/dL (31.0-37.0); MCV 101.3 fL (80.0-100.0); Macrocytosis Slight; Mean Platelet Volume 7.1; RBC 2.62 m/uL (4.30-5.90); RDW 14.8 % (11.5-15.5); WBC 2.2 k/uL (3.8-10.6); WBC (Perox) 2.11
[2017-03-23 08:05] LABS: Anion Gap 8 mmol/L; Blood Urea Nitrogen 6 mg/dL (9-20); Calcium 7.1 mg/dL (8.4-10.2); Carbon Dioxide 18 mmol/L (22-30); Chloride 107 mmol/L (98-107); Glucose 71 mg/dL (74-99); Non-African American GFR(MDRD) >60 (>60 ml/min/1.73 sqM); Potassium 3.6 mmol/L (3.5-5.1); Sodium 133 mmol/L (137-145)
[2017-03-23 09:50] LABS: Add Differential Manual Differential
[2017-03-23 09:53] LABS: Band Neutrophils % 1 %; Manual Review Performed; Nucleated Red Blood Cells 0 /100 WBC (0-0); Total Cells Counted 100
[2017-03-23] MEDS: SODIUM CHLORIDE 0.9% 1,000 ML IV SCH ×3 (10:07→21:55)
[2017-03-23] MEDS: PREGABALIN 75 MG CAP PO SCH ×3 (10:13→21:49)
[2017-03-23] MEDS: ENOXAPARIN 40 MG/0.4 ML SYRINGE SQ SCH (10:15)
[2017-03-23] MEDS: CYPROHEPTADINE 4 MG TABLET PO SCH ×3 (11:34→17:13)
--- NOTE | 2017-03-23 11:43 | P.PN ---
Subjective 57-year-old man with severe depression not been eating for about few days at a motel room was admitted for hyponatremia patient's hyponatremia is improving because of hyperchloremic issues and normal lactic acid, patient was switched to lactated Ringer's and stent. Patient doesn't have any significant withdrawals. On 03/21/2017 Patient is awake and oriented. Continues to cooperative with staff. Denied any nausea vomiting. Tolerating oral diet slowly. Sodium level slightly came down today and IV fluids will be changed back to normal saline. No fever no chills. No acute overnight issues 03/22/2017 Patient is awake and oriented. Still very lethargic and some confusion present , sodium level improved to 131. Still neutropenic at 2.0. No fever no chills no acute overnight issues. Patient does require to be transferred to rehab 03/23/2017 Patient has significant improvement since I saw last time no overnight events. All the workup for sepsis was negative patient had fever on the day left. Rocephin will be discontinued. Although did not see any urinalysis. If at all he has UTI he received enough antibiotics by now. Constitutional: Denied any fatigue denied any fever. Cardio vascular: denied any chest pain, palpitations Gastrointestinal denied any nausea vomiting Pulmonary: Denied any shortness of breath cough Neurologic denied any new focal deficits Objective - Vital Signs Vital signs: Vital Signs Temp 98.8 F 03/23/17 08:39 Pulse 98 03/23/17 08:39 Resp 16 03/23/17 08:39 BP 92/69 03/23/17 08:39 Pulse Ox 97 03/22/17 23:00 Intake & Output 03/22/17 03/23/17 03/23/17 18:59 06:59 18:59 Intake Total 700 1150 300 Output Total 450 625 275 Balance 250 525 25 Weight 56.245 kg 56.245 kg Intake: Intake, IV Titration 700 1150 Amount Sodium Chloride 0.9% 1, 700 1150 000 ml @ 100 mls/hr IV . Q10H ADDY Rx#:[id number] Oral 300 Output: Urine 450 625 275 Other: Voiding Method Urinal Urinal Urinal # Voids 1 1 # Bowel Movements 1 1 - Exam Patient is lying in the bed comfortably, no acute distress, awake alert and oriented.. HEENT: Normocephalic. Neck is supple. Pupils reactive. Nostrils clear. Oral cavity is moist. Ears reveal no drainage. Neck reveals no JVD, carotid bruits, or thyromegaly. CHEST EXAMINATION: Trachea is central. Symmetrical expansion. Lung atkins clear to auscultation and percussion. CARDIAC: Normal S1, S2 with no gallops. No murmurs ABDOMEN: Soft. Bowel sounds normal. No organomegaly. No abdominal bruits. Extremities: reveal no edema. No clubbing or cyanosis Neurologically awake, alert, oriented x3 with well-coordinated movements. No focal deficits noted Skin: No rash or skin lesions. Psychiatric: Operative. Nonsuicidal Musculoskeletal: No joint swelling or deformity. Normal range of motion. - Labs CBC & Chem 7: 03/23/17 07:14 03/23/17 07:14 Labs: Abnormal Lab Results - Last 24 Hours (Table) 03/23/17 03/23/17 Range/Units 07:14 07:14 WBC 2.2 L (3.8-10.6) k/uL RBC 2.62 L (4.30-5.90) m/uL Hgb 8.4 L (13.0-17.5) gm/dL Hct 26.5 L (39.0-53.0) % MCV 101.3 H (80.0-100.0) fL Neutrophils # (Manual) 0.70 L (1.3-7.7) k/uL Sodium 133 L (137-145) mmol/L Carbon Dioxide 18 L (22-30) mmol/L BUN 6 L (9-20) mg/dL Creatinine 0.46 L (0.66-1.25) mg/dL Glucose 71 L (74-99) mg/dL Calcium 7.1 L (8.4-10.2) mg/dL Microbiology - Last 24 Hours (Table) 03/19/17 16:52 Blood Culture - Preliminary Blood No Growth after 72 hours 03/19/17 16:20 Blood Culture - Preliminary Blood No Growth after 72 hours Assessment and Plan Plan: #1 severe hypokalemia, hypovolemic hyponatremia: Improving #2 possibility of alcoholism and severe depression. #3 hypotension secondary to severe hypokalemia which resolved with IV fluids #4 lactic acidosis resolved now #5severe neuropathic pain because of his chronic low back problems patient for which patient was started on Lyrica. #6 severe deconditioning due to above-mentioned reasons of not ambulating and lying on the bed for a long time, possibly of discharge on Saturday to subacute rehabilitation #7 possibility of alcohol dependence and withdrawal although there is no evidence of that patient will be monitored and will be on alcohol withdrawal precautions #8 possibility of urinary tract infection: Completed antibiotic therapies Rocephin will be discontinued
[2017-03-23] MEDS: THIAMINE 100 MG TAB PO SCH (17:13)
[2017-03-23] MEDS: MIRTAZAPINE 15 MG TAB PO SCH (21:49)
[2017-03-23] MEDS: ACETAMINOPHEN TAB 325 MG TAB PO PRN (21:52)
[2017-03-24 07:15] LABS: Anion Gap 8 mmol/L; Blood Urea Nitrogen 6 mg/dL (9-20); Calcium 7.5 mg/dL (8.4-10.2); Carbon Dioxide 20 mmol/L (22-30); Chloride 109 mmol/L (98-107); Glucose 73 mg/dL (74-99); Non-African American GFR(MDRD) >60 (>60 ml/min/1.73 sqM); Potassium 3.5 mmol/L (3.5-5.1); Sodium 137 mmol/L (137-145)
[2017-03-24] MEDS: CYPROHEPTADINE 4 MG TABLET PO SCH ×3 (08:46→16:41)
[2017-03-24] MEDS: PREGABALIN 75 MG CAP PO SCH ×3 (09:16→23:06)
[2017-03-24] MEDS: ENOXAPARIN 40 MG/0.4 ML SYRINGE SQ SCH (09:17)
[2017-03-24] MEDS: THIAMINE 100 MG TAB PO SCH ×2 (13:11→16:41)
--- NOTE | 2017-03-24 15:04 | P.PN ---
Subjective 57-year-old man with severe depression not been eating for about few days at a motel room was admitted for hyponatremia patient's hyponatremia is improving because of hyperchloremic issues and normal lactic acid, patient was switched to lactated Ringer's and stent. Patient doesn't have any significant withdrawals. On 03/21/2017 Patient is awake and oriented. Continues to cooperative with staff. Denied any nausea vomiting. Tolerating oral diet slowly. Sodium level slightly came down today and IV fluids will be changed back to normal saline. No fever no chills. No acute overnight issues 03/22/2017 Patient is awake and oriented. Still very lethargic and some confusion present , sodium level improved to 131. Still neutropenic at 2.0. No fever no chills no acute overnight issues. Patient does require to be transferred to rehab 03/23/2017 Patient has significant improvement since I saw last time no overnight events. All the workup for sepsis was negative patient had fever on the day left. Rocephin will be discontinued. Although did not see any urinalysis. If at all he has UTI he received enough antibiotics by now. 03/24/2017 No overnight events no fever since last night. Constitutional: Denied any fatigue denied any fever. Cardio vascular: denied any chest pain, palpitations Gastrointestinal denied any nausea vomiting Pulmonary: Denied any shortness of breath cough Neurologic denied any new focal deficits Objective - Vital Signs Vital signs: Vital Signs Temp 97.7 F 03/24/17 07:17 Pulse 98 03/24/17 11:11 Resp 18 03/24/17 11:11 BP 102/70 03/24/17 07:17 Pulse Ox 97 03/23/17 23:00 Intake & Output 03/23/17 03/24/17 03/24/17 18:59 06:59 18:59 Intake Total 300 1150 Output Total 275 275 Balance 25 1150 -275 Weight 56.245 kg 56.245 kg 56.245 kg Intake: Intake, IV Titration 1150 Amount Sodium Chloride 0.9% 1, 1150 000 ml @ 100 mls/hr IV . Q10H ADDY Rx#:[id number] Oral 300 Output: Urine 275 275 Other: Voiding Method Urinal Urinal Bedside Commode Incontinent # Voids 1 2 2 # Bowel Movements 1 - Exam Patient is lying in the bed comfortably, no acute distress, awake alert and oriented.. HEENT: Normocephalic. Neck is supple. Pupils reactive. Nostrils clear. Oral cavity is moist. Ears reveal no drainage. Neck reveals no JVD, carotid bruits, or thyromegaly. CHEST EXAMINATION: Trachea is central. Symmetrical expansion. Lung atkins clear to auscultation and percussion. CARDIAC: Normal S1, S2 with no gallops. No murmurs ABDOMEN: Soft. Bowel sounds normal. No organomegaly. No abdominal bruits. Extremities: reveal no edema. No clubbing or cyanosis Neurologically awake, alert, oriented x3 with well-coordinated movements. No focal deficits noted Skin: No rash or skin lesions. Psychiatric: Operative. Nonsuicidal Musculoskeletal: No joint swelling or deformity. Normal range of motion. - Labs CBC & Chem 7: 03/23/17 07:14 03/24/17 06:39 Labs: Abnormal Lab Results - Last 24 Hours (Table) 03/24/17 Range/Units 06:39 Chloride 109 H (98-107) mmol/L Carbon Dioxide 20 L (22-30) mmol/L BUN 6 L (9-20) mg/dL Creatinine 0.44 L (0.66-1.25) mg/dL Glucose 73 L (74-99) mg/dL Calcium 7.5 L (8.4-10.2) mg/dL Microbiology - Last 24 Hours (Table) 03/19/17 16:52 Blood Culture - Preliminary Blood No Growth after 96 hours 03/19/17 16:20 Blood Culture - Preliminary Blood No Growth after 96 hours Assessment and Plan Plan: #1 severe hypokalemia, hypovolemic hyponatremia: Improved IV fluids will be discussed in your. #2 possibility of alcoholism and severe depression. #3 hypotension secondary to severe hypokalemia which resolved with IV fluids #4 lactic acidosis resolved now #5severe neuropathic pain because of his chronic low back problems patient for which patient was started on Lyrica. #6 severe deconditioning due to above-mentioned reasons of not ambulating and lying on the bed for a long time, possibly of discharge on Saturday to subacute rehabilitation #7 possibility of alcohol dependence and withdrawal although there is no evidence of that patient will be monitored and will be on alcohol withdrawal precautions #8 possibility of urinary tract infection: Completed antibiotic therapies Rocephin will be discontinued #9 hypomagnesemia magnesium will be supplemented
[2017-03-24] MEDS: MIRTAZAPINE 15 MG TAB PO SCH (23:06)
[2017-03-25] MEDS: CYPROHEPTADINE 4 MG TABLET PO SCH ×3 (08:43→17:05)
[2017-03-25] MEDS: PREGABALIN 75 MG CAP PO SCH ×3 (08:43→20:15)
[2017-03-25] MEDS: ENOXAPARIN 40 MG/0.4 ML SYRINGE SQ SCH (08:43)
[2017-03-25] MEDS: THIAMINE 100 MG TAB PO SCH ×2 (08:44→17:05)
[2017-03-25] MEDS ORDERED: Magnesium Replacement Protocol 1 EACH MISC MISCELLANE PRN (10:34)
[2017-03-25] MEDS: MAGNESIUM SULFATE-D5W PMX 1 GM in DEXTROSE/WATER 1 100ML.BAG IVPB SCH ×3 (13:18→15:38)
--- NOTE | 2017-03-25 14:05 | P.PN ---
Subjective Progress Note Date: 03/25/17 Progress note being dictated for Dr. Rizzo. 57-year-old man with severe depression not been eating for about few days at a motel room was admitted for hyponatremia patient's hyponatremia is improving because of hyperchloremic issues and normal lactic acid, patient was switched to lactated Ringer's and stent. Patient doesn't have any significant withdrawals. On 03/21/2017 Patient is awake and oriented. Continues to cooperative with staff. Denied any nausea vomiting. Tolerating oral diet slowly. Sodium level slightly came down today and IV fluids will be changed back to normal saline. No fever no chills. No acute overnight issues 03/22/2017 Patient is awake and oriented. Still very lethargic and some confusion present , sodium level improved to 131. Still neutropenic at 2.0. No fever no chills no acute overnight issues. Patient does require to be transferred to rehab 03/23/2017 Patient has significant improvement since I saw last time no overnight events. All the workup for sepsis was negative patient had fever on the day left. Rocephin will be discontinued. Although did not see any urinalysis. If at all he has UTI he received enough antibiotics by now. 03/24/2017 No overnight events no fever since last night 03/25/2017 magnesium 1.2, currently being supplemented. BMP pending. No overnight events. Afebrile. Urine culture negative. Completed antibiotic regime. Objective - Vital Signs Vital signs: Vital Signs Temp 98.6 F 03/25/17 07:00 Pulse 89 03/25/17 07:00 Resp 16 03/25/17 00:00 BP 108/60 03/25/17 07:00 Pulse Ox 98 03/25/17 07:00 Intake & Output 03/24/17 03/25/17 03/25/17 18:59 06:59 18:59 Intake Total 500 1300 Output Total 750 600 Balance -250 700 Weight 56.245 kg 56.245 kg Intake: Oral 500 1300 Output: Urine 750 600 Other: Voiding Method Bedside Commode Bedside Commode Bedside Commode Urinal Urinal # Voids 1 2 # Bowel Movements 1 - Exam Patient is lying in the bed comfortably, no acute distress, awake alert and oriented.. HEENT: Normocephalic. Neck is supple. Pupils reactive. Nostrils clear. Oral cavity is moist. Ears reveal no drainage. Neck reveals no JVD, carotid bruits, or thyromegaly. CHEST EXAMINATION: Trachea is central. Symmetrical expansion. Lung atkins clear to auscultation and percussion. CARDIAC: Normal S1, S2 with no gallops. No murmurs ABDOMEN: Soft. Bowel sounds normal. No organomegaly. No abdominal bruits. Extremities: reveal no edema. No clubbing or cyanosis Neurologically awake, alert, oriented x3 with well-coordinated movements. No focal deficits noted Skin: No rash or skin lesions. Psychiatric: Operative. Nonsuicidal Musculoskeletal: No joint swelling or deformity. Normal range of motion. - Labs CBC & Chem 7: 03/23/17 07:14 03/24/17 06:39 Labs: Abnormal Lab Results - Last 24 Hours (Table) 03/25/17 Range/Units 08:33 Magnesium 1.2 L (1.6-2.3) mg/dL Microbiology - Last 24 Hours (Table) 03/19/17 16:52 Blood Culture - Preliminary Blood No Growth after 120 hours 03/19/17 16:20 Blood Culture - Preliminary Blood No Growth after 120 hours Assessment and Plan Plan: #1 severe hypokalemia, hypovolemic hyponatremia:improved #2 possibility of alcoholism and severe depression. No DTs #3 hypotension secondary to severe hypokalemia which resolved with IV fluids. #4 lactic acidosis resolved #5severe neuropathic pain because of his chronic low back problems patient for which patient was started on Lyrica. #6 severe deconditioning due to above-mentioned reasons of not ambulating and lying on the bed for a long time, #7possibility of urinary tract infection: Completed antibiotic therapies Rocephin will be discontinued #9 hypomagnesemia magnesium , supplemented Plan: Continue on current medication regime ,monitoring. Discharge planning in progress to [facility], as per social welfare research worker assistance. The impression and plan of care has been dictated as directed. : I performed a history and examination of this patient, discussed the same with the dictator. I agree with the dictator's note ,documented as a scribe. Any additional findings or plans will be noted.
[2017-03-25 14:33] LABS: Anion Gap 7 mmol/L; Blood Urea Nitrogen 6 mg/dL (9-20); Calcium 7.8 mg/dL (8.4-10.2); Carbon Dioxide 22 mmol/L (22-30); Chloride 106 mmol/L (98-107); Glucose 85 mg/dL (74-99); Non-African American GFR(MDRD) >60 (>60 ml/min/1.73 sqM); Potassium 3.5 mmol/L (3.5-5.1); Sodium 135 mmol/L (137-145)
[2017-03-25] MEDS: MIRTAZAPINE 15 MG TAB PO SCH (20:15)
[2017-03-25] MEDS ORDERED: HYDROcodone/APAP 5-325MG 1 EACH TAB PO PRN (22:55)
[2017-03-25] MEDS ORDERED: ACETAMINOPHEN TAB 325 MG TAB PO PRN (22:57)
--- NOTE | 2017-03-25 23:00 | P.PN ---
Progress Note - Text Progress Note Date: 03/25/17 Interval History: Patient interviewed at bedside, patient is in a cantankerous, sarcastic. Appetite has improved with the addition of Periactin. Today patient's major complaint is low back pain and pain in his bilateral LE's due to neuropathy. Patient appears quite miserable and uncomfortable in bed. Lyrica has started to help mildly with neuropathic pain but it remains intermittently severe. Mental Status Exam: Appearance: tired, fatigued, hygiene is intact, appears older than chronological age Behavior: psychomotor agitation++, abnormal movements,+++ fair eye contact Attitude: cooperative Speech: normal rate, rhythm, fluency, articulation, volume, and prosody; primary language: Maltese Mood: cantankerous Affect: congruent, reactive Thought processes: linear Thought content: patient does not appear to be responding to internal stimuli; patient denies auditory and visual hallucinations, no delusions appreciated Insight: fair Judgment: poor Cognitive: oriented to all 3 spheres, average intelligence Plan: Continue Remeron to 15-mg PO QHS Continue Lyrica to 75-mg PO TID Continue Periactin 2-mg AC TID for decreased appetite Start [place] 5/325 Q 6hr PRN for pain Start Vitamin B-6 50-mg PO BID
[2017-03-26 08:31] LABS: Anion Gap 6 mmol/L; Blood Urea Nitrogen 5 mg/dL (9-20); Calcium 7.5 mg/dL (8.4-10.2); Carbon Dioxide 20 mmol/L (22-30); Chloride 107 mmol/L (98-107); Glucose 78 mg/dL (74-99); Magnesium 1.5 mg/dL (1.6-2.3); Non-African American GFR(MDRD) >60 (>60 ml/min/1.73 sqM); Potassium 3.8 mmol/L (3.5-5.1); Sodium 133 mmol/L (137-145)
[2017-03-26 08:33] LABS: Aty Lym Flag Slight; CH 32.9; CHCM 32.3; HCT 24.9 % (39.0-53.0); HGB 7.8 gm/dL (13.0-17.5); MCH 32.3 pg (25.0-35.0); MCHC 31.5 g/dL (31.0-37.0); MCV 102.5 fL (80.0-100.0); Macrocytosis Slight; Mean Platelet Volume 7.1; RBC 2.43 m/uL (4.30-5.90); RDW 15.5 % (11.5-15.5); WBC 2.1 k/uL (3.8-10.6); WBC (Perox) 2.08
[2017-03-26] MEDS ORDERED: Magnesium Replacement Protocol 1 EACH MISC MISCELLANE PRN (08:37)
[2017-03-26 08:53] LABS: Add Differential Manual Differential
[2017-03-26 08:56] LABS: Manual Review Performed; Nucleated Red Blood Cells 0 /100 WBC (0-0); Total Cells Counted 100
[2017-03-26] MEDS: ENOXAPARIN 40 MG/0.4 ML SYRINGE SQ SCH (09:31)
[2017-03-26] MEDS: PYRIDOXINE 50 MG TAB PO SCH ×2 (09:31→21:17)
[2017-03-26] MEDS: CYPROHEPTADINE 4 MG TABLET PO SCH ×4 (09:31→17:18)
[2017-03-26] MEDS: PREGABALIN 75 MG CAP PO SCH ×3 (09:33→21:17)
[2017-03-26] MEDS: MAGNESIUM SULFATE-D5W PMX 1 GM in DEXTROSE/WATER 1 100ML.BAG IVPB SCH ×2 (11:07→12:10)
[2017-03-26] MEDS: THIAMINE 100 MG TAB PO SCH ×2 (12:11→16:45)
--- NOTE | 2017-03-26 16:51 | P.PN ---
Subjective Progress Note Date: 03/26/17 Progress note being dictated for Dr. Lopez. 57-year-old man with severe depression not been eating for about few days at a motel room was admitted for hyponatremia patient's hyponatremia is improving because of hyperchloremic issues and normal lactic acid, patient was switched to lactated Ringer's and stent. Patient doesn't have any significant withdrawals. On 03/21/2017 Patient is awake and oriented. Continues to cooperative with staff. Denied any nausea vomiting. Tolerating oral diet slowly. Sodium level slightly came down today and IV fluids will be changed back to normal saline. No fever no chills. No acute overnight issues 03/22/2017 Patient is awake and oriented. Still very lethargic and some confusion present , sodium level improved to 131. Still neutropenic at 2.0. No fever no chills no acute overnight issues. Patient does require to be transferred to rehab 03/23/2017 Patient has significant improvement since I saw last time no overnight events. All the workup for sepsis was negative patient had fever on the day left. Rocephin will be discontinued. Although did not see any urinalysis. If at all he has UTI he received enough antibiotics by now. 03/24/2017 No overnight events no fever since last night 03/25/2017 magnesium 1.2, currently being supplemented. BMP pending. No overnight events. Afebrile. Urine culture negative. Completed antibiotic regime. 03/26/2017 no overnight events. Afebrile. Sodium 133, magnesium 1.5. Social work with legal guardian deciding on subacute rehab. Evaluated further by psychiatry last night, [place] initiated for her neuropathy pain; slowly improving. Denies chest pain, palpitations or increasing shortness of breath. Objective - Vital Signs Vital signs: Vital Signs Temp 98.4 F 03/26/17 14:17 Pulse 90 03/26/17 14:17 Resp 16 03/26/17 14:17 BP 106/62 03/26/17 14:17 Pulse Ox 98 03/26/17 14:17 Intake & Output 03/25/17 03/26/17 03/26/17 18:59 06:59 18:59 Intake Total 500 Output Total 300 Balance 200 Weight 56.245 kg Intake: Oral 500 Output: Urine 300 Other: Voiding Method Bedside Commode Bedside Commode Urinal Urinal Urinal # Voids 2 2 # Bowel Movements 2 - Exam Patient is lying in the bed comfortably, no acute distress, awake alert and oriented.. HEENT: Normocephalic. Neck is supple. Pupils reactive. Nostrils clear. Oral cavity is moist. Ears reveal no drainage. Neck reveals no JVD, carotid bruits, or thyromegaly. CHEST EXAMINATION: Trachea is central. Symmetrical expansion. Lung atkins clear to auscultation and percussion. CARDIAC: Normal S1, S2 with no gallops. No murmurs ABDOMEN: Soft. Bowel sounds normal. No organomegaly. No abdominal bruits. Extremities: reveal no edema. No clubbing or cyanosis Neurologically awake, alert, oriented x3 with well-coordinated movements. No focal deficits noted Skin: No rash or skin lesions. Psychiatric: Operative. Nonsuicidal Musculoskeletal: No joint swelling or deformity. Normal range of motion. - Labs CBC & Chem 7: 03/26/17 07:44 03/26/17 07:44 Labs: Abnormal Lab Results - Last 24 Hours (Table) 03/26/17 03/26/17 Range/Units 07:44 07:44 WBC 2.1 L (3.8-10.6) k/uL RBC 2.43 L (4.30-5.90) m/uL Hgb 7.8 L (13.0-17.5) gm/dL Hct 24.9 L (39.0-53.0) % MCV 102.5 H (80.0-100.0) fL Neutrophils # (Manual) 0.67 L (1.3-7.7) k/uL Sodium 133 L (137-145) mmol/L Carbon Dioxide 20 L (22-30) mmol/L BUN 5 L (9-20) mg/dL Creatinine 0.42 L (0.66-1.25) mg/dL Calcium 7.5 L (8.4-10.2) mg/dL Magnesium 1.5 L (1.6-2.3) mg/dL Microbiology - Last 24 Hours (Table) 03/19/17 16:52 Blood Culture - Final Blood No Growth after 144 hours 03/19/17 16:20 Blood Culture - Final Blood No Growth after 144 hours Assessment and Plan Plan: #1 severe hypokalemia, hypovolemic hyponatremia:improved #2 possibility of alcoholism and severe depression. No DTs #3 hypotension secondary to severe hypokalemia which resolved with IV fluids. #4 lactic acidosis resolved #5severe neuropathic pain because of his chronic low back problems patient for which patient was started on Lyrica. #6 severe deconditioning due to above-mentioned reasons of not ambulating and lying on the bed for a long time, #7possibility of urinary tract infection: Completed antibiotic therapies Rocephin will be discontinued #9 hypomagnesemia magnesium , supplemented Plan: Continue on current medication regime ,monitoring. Maintained on Remeron and Lyrica as per psychiatry. Magnesium supplementation as per replacement protocol. Discharge planning in progress to [facility], as per high school social studies tutor assistance. The impression and plan of care has been dictated as directed. : I performed a history and examination of this patient, discussed the same with the dictator. I agree with the dictator's note ,documented as a scribe. Any additional findings or plans will be noted.
--- NOTE | 2017-03-26 17:04 | P.PN ---
Progress Note - Text Progress Note Date: 03/26/17 Interval History: Patient interviewed at bedside, he is asleep, easily aroused, but falls back asleep several times during interview. Patient continues to complain of being in the hospital. He states that he wants to be discharged. He also reports mild improvements in his appetite with Periactin. Patient remains remains depressed and anxious. He states "look at my situation, it;s depressing I'm not but since I have to be here, it makes me depressed). Patient continues to complain of low back pain and neuropathic pain in his bilateral LE's. At this time, patient denies SI/HI/AVH. Mental Status Exam: Appearance: sleepy, hygiene is intact, appears older than chronological age Behavior: psychomotor agitation, abnormal movements,+++ fair eye contact Attitude: cooperative Speech: normal rate, rhythm, fluency, articulation, volume, and prosody; primary language: Syriac Mood: cantankerous Affect: congruent, reactive Thought processes: linear Thought content: patient does not appear to be responding to internal stimuli; patient denies auditory and visual hallucinations, no delusions appreciated Insight: fair Judgment: poor Cognitive: oriented to all 3 spheres, average intelligence Plan: Continue Remeron to 15-mg PO QHS Continue Lyrica to 75-mg PO TID Continue Periactin 2-mg AC TID for decreased appetite Continue [place] 5/325 Q 6hr PRN for pain Continue Vitamin B-6 50-mg PO BID Patient does not meet criteria for involuntary psychiatric admission Psychiatry will sign off, please feel free to contact if any additional questions or concerns ~ Hector Hernandez DO [phone] (pager)
[2017-03-26] MEDS: MIRTAZAPINE 15 MG TAB PO SCH (21:17)
[2017-03-27] MEDS ORDERED: Magnesium Replacement Protocol 1 EACH MISC MISCELLANE PRN (08:30)
[2017-03-27] MEDS: ENOXAPARIN 40 MG/0.4 ML SYRINGE SQ SCH (08:38)
[2017-03-27] MEDS: PREGABALIN 75 MG CAP PO SCH (08:38)
[2017-03-27] MEDS: CYPROHEPTADINE 4 MG TABLET PO SCH ×2 (08:38→13:15)
[2017-03-27] MEDS: PYRIDOXINE 50 MG TAB PO SCH (08:38)
[2017-03-27] MEDS: MAGNESIUM SULFATE-D5W PMX 1 GM in DEXTROSE/WATER 1 100ML.BAG IVPB SCH ×2 (09:53→11:38)
[2017-03-27] MEDS: THIAMINE 100 MG TAB PO SCH (13:15)
--- NOTE | 2017-03-27 14:08 | P.DS ---
Providers Date of admission: 03/17/17 20:57 Expected date of discharge: 03/27/17 Attending physician: Moira Lopez Consults: 03/18/17 11:22 Consult Physician Routine Consulting Provider: Hector Hernandez Consult Reason/Comments: Severe depression Do you want consulting provider notified?: Yes Primary care physician: Stated None Dr. Ratliff Hospital Course: [place] Diagnoses: #1 severe hypokalemia, hypovolemic hyponatremia:improved #2 possibility of alcoholism and severe depression. No DTs #3 hypotension secondary to severe hypokalemia resolved with IV fluids. #4 lactic acidosis resolved #5severe neuropathic pain because of his chronic low back problems, Lyrica initiated. #6 severe deconditioning due to above-mentioned reasons of not ambulating and lying on the bed for a long time, #7possibility of urinary tract infection: Completed antibiotic therapies Rocephin will be discontinued #9 hypomagnesemia magnesium , supplemented Hospital Course: 57-year-old man with severe depression not been eating for about few days at a motel room, hyponatremia, ETOH abuse without significant withdrawals. Evaluated by psychiatry: Lyrica ,Remeron, Periactin initiated. Significant Clinical improvement. Cleared by psychiatry for discharge. Patient is being discharged to [facility]. in a stable condition with guarded prognosis. The impression and plan of care has been dictated as directed. : I performed a history and examination of this patient, discussed the same with the dictator. I agree with the dictator's note ,documented as a scribe. Any additional findings or plans will be noted. Patient Condition at Discharge: Stable Plan - Discharge Summary New Discharge Prescriptions: New Acetaminophen Tab [Tylenol] 325 mg PO Q6HR PRN tab PRN Reason: Fever and/ or mild Pain Cyproheptadine [Cyproheptadine HCl] 4 mg PO AC-TID tablet Folic Acid 1 mg PO DAILY #1 tablet HYDROcodone/APAP 5-325MG [[place] 5-325] 1 each PO Q6HR PRN tab PRN Reason: Fever And/Or Moderate Pain Mirtazapine [Remeron] 15 mg PO HS tab Multivitamins, Thera [Multivitamin (formulary)] 1 tab PO DAILY #1 tablet Pregabalin [Lyrica] 75 mg PO TID cap Pyridoxine [Vitamin B-6] 50 mg PO BID tab Thiamine [Vitamin B-1] 100 mg PO BID@1200,1700 tab Discharge Medication List Acetaminophen Tab [Tylenol] 325 mg PO Q6HR PRN tab 03/27/17 [Rx] Cyproheptadine [Cyproheptadine HCl] 4 mg PO AC-TID tablet 03/27/17 [Rx] Folic Acid 1 mg PO DAILY #1 tablet 03/27/17 [Rx] HYDROcodone/APAP 5-325MG [[place] 5-325] 1 each PO Q6HR PRN tab 03/27/17 [Rx] Mirtazapine [Remeron] 15 mg PO HS tab 03/27/17 [Rx] Multivitamins, Thera [Multivitamin (formulary)] 1 tab PO DAILY #1 tablet [Rx] Pregabalin [Lyrica] 75 mg PO TID cap 03/27/17 [Rx] Pyridoxine [Vitamin B-6] 50 mg PO BID tab 03/27/17 [Rx] Thiamine [Vitamin B-1] 100 mg PO BID@1200,1700 tab 03/27/17 [Rx] Follow up Appointment(s)/Referral(s): Robinson Ratliff MD [STAFF PHYSICIAN] - 3 Days (at [facility]) Activity/Diet/Wound Care/Special Instructions: [facility] Diet: regular cbc,bmp in 3 days
[2017-03-27 15:12] VITALS: BP 99/69; PULSE 102; RESP 16; TEMP 98
== END 2017-03-27 16:04 | DRG 641 ==
LOC: EC 18:48 → 5MS5E 20:57 → EEVIPCON 20:57
PROVIDERS: ADMIT Hospitalist; ATTEND Hospitalist
DX: E87.6 Hypokalemia (principal); E44.1 Mild protein-calorie malnutrition; N39.0 Urinary tract infection, site not specified; E86.0 Dehydration; E87.2 Acidosis; I95.9 Hypotension, unspecified; D70.9 Neutropenia, unspecified; G62.9 Polyneuropathy, unspecified; E87.1 Hypo-osmolality and hyponatremia; E83.42 Hypomagnesemia; E87.8 Other disorders of electrolyte and fluid balance, not elsewhere classified; F17.200 Nicotine dependence, unspecified, uncomplicated; F32.9 Major depressive disorder, single episode, unspecified; M19.90 Unspecified osteoarthritis, unspecified site; M54.5 Low back pain; G89.29 Other chronic pain; R32 Unspecified urinary incontinence; F10.229 Alcohol dependence with intoxication, unspecified
CPT/HCPCS: 36415; 80048; 80053; 80320; 81001; 82140; 82550; 82553; 82607; 83605; 83735; 84100; 84132; 84134; 84207; 84425; 84443; 84484; 85025; 85027; 85610; 85730; 87040; 87086; 87324; 93005; 96361; 96365; 96372; 99285